=== PATIENT | male | born 1960 | race Caucasian/White ===

== ENCOUNTER 2022-09-09 13:54 | Emergency (ER) | payer OTHER ==
[2022-09-09 14:15] VITALS: RESP 20; TEMP 98.6
[2022-09-09] MEDS ORDERED: LIDOCAINE 1% PF 10 MG/ML (5 ML AMP) SQ ONE (14:35)
[2022-09-09] MEDS ORDERED: LIDOCAINE 1% INJ 10MG/ML (30 ML VIAL-PF) SQ ONE (14:36)
[2022-09-09] MEDS ORDERED: SULFAMETH-TMP DS STARTER PACK 2 TAB BTL PO STA (14:53)
[2022-09-09] MEDS ORDERED: CEPHALEXIN 500MG STARTER PACK 4 CAP BTL PO STA (14:53)
[2022-09-09] MEDS ORDERED: ACET/COD 300 MG/30 MG STARTER PACK 6 TAB BTL PO STA (14:53)
[2022-09-09] MEDS ORDERED: IBUPROFEN 600 MG STARTER PACK 4 TAB BTL PO STA (14:53)
--- NOTE | 2022-09-09 14:55 | ED ---
General Adult HPI - General Chief complaint: Skin/Abscess/Foreign Body Stated complaint: painful pimple rt shoulder Time Seen by Provider: 09/09/22 14:29 Source: patient, RN notes reviewed Mode of arrival: ambulatory Limitations: no limitations - History of Present Illness Initial comments: 62-year-old male presents emergency Department chief complaint of infection to his right shoulder region. Patient states she's had a lump she doses of possible for several months states now larger, more painful and red. Patient states he feels like it feel a pop. Patient has normal drug ALLERGIES. Denies any other trauma no other complaints. - Related Data Previous Rx's Medication Instructions Recorded Cephalexin [Keflex] 500 mg PO Q6HR #28 cap 09/09/22 Sulfamethox-Tmp 800-160Mg [Bactrim 1 each PO Q12HR #14 tab 09/09/22 Ds] Allergies Allergy/AdvReac Type Severity Reaction Status Date / Time No Known Allergies Allergy Verified 09/09/22 14:15 Review of Systems ROS Statement: Those systems with pertinent positive or pertinent negative responses have been documented in the HPI. ROS Other: All systems not noted in ROS Statement are negative. Past Medical History Past Medical History: No Reported History History of Any Multi-Drug Resistant Organisms: None Reported Past Surgical History: No Surgical Hx Reported Past Psychological History: No Psychological Hx Reported Smoking Status: Current every day smoker Past Alcohol Use History: None Reported Past Drug Use History: None Reported General Exam Limitations: no limitations General appearance: alert, in no apparent distress Head exam: Present: atraumatic, normocephalic, normal inspection Neck exam: Present: full ROM. Absent: normal inspection (2 cm fluctuant abscess area to the right trapezius), tenderness, meningismus, lymphadenopathy Respiratory exam: Present: normal lung sounds bilaterally. Absent: respiratory distress, wheezes, rales, rhonchi, stridor Cardiovascular Exam: Present: regular rate, normal rhythm, normal heart sounds. Absent: systolic murmur, diastolic murmur, rubs, gallop, clicks Course Vital Signs 09/09/22 14:12 Temperature 98.6 F Pulse Rate 83 Respiratory 20 Rate Blood Pressure 162/100 O2 Sat by Pulse 96 Oximetry Procedures - Incision & Drainage Consent Obtained: verbal consent Site: back Size (cm): 2 Anesthetic Used: lidocaine 1%, without epi Amount (mLs): 5 I&D Cleaning Method: Alcohol Wipe Sterile Field Used?: Yes Scalpel Used: #11 I&D Drainage Obtained: Pus Patient Tolerated Procedure: well, no complications Medical Decision Making - Medical Decision Making 62-year-old male presented for abscess right shoulder. Patient has a right shoulder infected sebaceous cysts this was I&D patient was placed on oral antibiotics and follow-up. Disposition Clinical Impression: Infected sebaceous cyst of skin Disposition: HOME SELF-CARE Condition: Stable Instructions (If sedation given, give patient instructions): Abscess (ED) Additional Instructions: Please return to the Emergency Department if symptoms worsen or any other concerns. Prescriptions: Sulfamethox-Tmp 800-160Mg [Bactrim Ds] 1 each PO Q12HR #14 tab Cephalexin [Keflex] 500 mg PO Q6HR #28 cap Is patient prescribed a controlled substance at d/c from ED?: No Referrals: None,Stated [Primary Care Provider] - 1-2 days Time of Disposition: 14:55
[2022-09-09 15:58] VITALS: BP 110/60; PULSE 68
== END 2022-09-09 15:58 | disposition home or self-care (01) ==
LOC: EC 13:54
DX: L72.3 Sebaceous cyst (principal); F17.200 Nicotine dependence, unspecified, uncomplicated
CPT/HCPCS: 10060; 99283; J2001

== ENCOUNTER 2023-06-11 07:47 | Emergency (ER) | payer OTHER ==
--- NOTE | 2023-06-11 08:16 | ED ---
General Adult HPI - General Chief complaint: Extremity Injury, Lower Stated complaint: [facility] - lt foot injury Time Seen by Provider: 06/11/23 07:50 Source: patient, RN notes reviewed, old records reviewed Mode of arrival: wheelchair Limitations: no limitations - History of Present Illness Initial comments: 63-year-old male presenting with left foot injury. Patient states that around midnight which was 8 hours prior to arrival he had dropped a wooden pallet on his left foot. He states he had taken some pain medication prior to this for unrelated pain complaint and states this did not bother him too much. He was able to walk throughout the night but noted this morning that his pain was increasing. He presents to the emergency department for evaluation. No other injury. - Related Data Previous Rx's Medication Instructions Recorded Cephalexin [Keflex] 500 mg PO Q6HR #28 cap 09/09/22 Sulfamethox-Tmp 800-160Mg [Bactrim 1 each PO Q12HR #14 tab 09/09/22 Ds] Allergies Allergy/AdvReac Type Severity Reaction Status Date / Time No Known Allergies Allergy Verified 09/09/22 14:15 Review of Systems ROS Statement: Those systems with pertinent positive or pertinent negative responses have been documented in the HPI. ROS Other: All systems not noted in ROS Statement are negative. Past Medical History Past Medical History: No Reported History History of Any Multi-Drug Resistant Organisms: None Reported Past Surgical History: No Surgical Hx Reported Past Psychological History: No Psychological Hx Reported Smoking Status: Current every day smoker Past Alcohol Use History: None Reported Past Drug Use History: None Reported General Exam Limitations: physical limitation General appearance: alert, in no apparent distress Head exam: Present: atraumatic, normocephalic Eye exam: Present: normal appearance, PERRL ENT exam: Present: normal exam Neck exam: Present: normal inspection Respiratory exam: Present: normal lung sounds bilaterally. Absent: respiratory distress, wheezes Cardiovascular Exam: Present: regular rate, normal rhythm GI/Abdominal exam: Present: soft. Absent: distended, tenderness Extremities exam: Present: other (Ecchymosis to the mid foot left side. Normal range of motion of the toes, distal pulses are intact. There is soft tissue swelling. No gross deformity.) Neurological exam: Present: alert, oriented X3 Psychiatric exam: Present: normal affect, normal mood Skin exam: Present: warm Course Vital Signs 06/11/23 08:03 Temperature 97.9 F Pulse Rate 82 Respiratory 18 Rate Blood Pressure 144/97 O2 Sat by Pulse 95 Oximetry Medical Decision Making - Medical Decision Making Was pt. sent in by a medical professional or institution ([facility], MOBILE HOME TECHNICIAN, urgent care, hospital, or long term...) When possible be specific @ -No Did you speak to anyone other than the patient for history (EMS, parent, family, police, friend...)? What history was obtained from this source @ -No Did you review nursing and triage notes (agree or disagree)? Why? @ -I reviewed and agree with nursing and triage notes Were old charts reviewed (outside hosp., previous admission, EMS record, old EKG, old radiological studies, urgent care reports/EKG's, long term records)? Report findings @ -No old charts were reviewed Differential Diagnosis (chest pain, altered mental status, abdominal pain women, abdominal pain men, vaginal bleeding, weakness, fever, dyspnea, syncope, headache, dizziness, GI bleed, back pain, seizure, CVA, palpatations, mental health, musculoskeletal)? @ -Fracture dislocation of the foot, contusion, hematoma EKG interpreted by me (3pts min.). @ -As above X-rays interpreted by me (1pt min.). @ -X-ray negative for fracture dislocation CT interpreted by me (1pt min.). @ -None done U/S interpreted by me (1pt. min.). @ -None done What testing was considered but not performed or refused? (CT, X-rays, U/S, labs)? Why? @ -None What meds were considered but not given or refused? Why? @ -None Did you discuss the management of the patient with other professionals (professionals i.e. [facility], MOBILE HOME TECHNICIAN, lab, RT, psych nurse, administrator social welfare, porcelain enamel laborer, teacher, senior officer, case monitor)? Give summary @ -No Was smoking cessation discussed for >3mins.? @ -No Was critical care preformed (if so, how long)? @ -No Were there social determinants of health that impacted care today? How? (Homelessness, low income, unemployed, alcoholism, drug addiction, transportati on, low edu. Level, literacy, decrease access to med. care, long-term, rehab)? @ -No Was there de-escalation of care discussed even if they declined (Discuss DNR or withdrawal of care, Hospice)? DNR status @ -No What co-morbidities impacted this encounter? (DM, HTN, Smoking, COPD, CAD, Cancer, CVA, ARF, Chemo, Hep., AIDS, mental health diagnosis, sleep apnea, morbid obesity)? @ -None Was patient admitted / discharged? Hospital course, mention meds given and route, prescriptions, significant lab abnormalities, going to OR and other pertinent info. @63-year-old male with left foot injury, after dropping a wooden pallet onto his foot. There is no fracture dislocation evident on x-ray. There is significant soft tissue swelling and hematoma. Puma wrap is placed patient will elevate and ice the extremity. He will follow-up with primary care if symptoms persist may require repeat x-rays in 1 week. Undiagnosed new problem with uncertain prognosis? @ -No Drug Therapy requiring intensive monitoring for toxicity (Heparin, Nitro, Insulin, Cardizem)? @ -No Were any procedures done? @ -No Diagnosis/symptom? @ -[Contusion hematoma of the left foot Acute, or Chronic, or Acute on Chronic? @ -Acute Uncomplicated (without systemic symptoms) or Complicated (systemic symptoms)? @ -default Side effects of treatment? @ -No Exacerbation, Progression, or Severe Exacerbation? @ -No Poses a threat to life or bodily function? How? (Chest pain, [place], [place], pneumonia, PE, COPD, DKA, ARF, appy, cholecystitis, CVA, Diverticulitis, Homicidal, Suicidal, threat to staff... and all critical care pts) @ -No Disposition Clinical Impression: Contusion of foot, Hematoma of left foot Disposition: HOME SELF-CARE Condition: Good Instructions (If sedation given, give patient instructions): Foot Contusion (ED) Is patient prescribed a controlled substance at d/c from ED?: No Referrals: None,Stated [Primary Care Provider] - 1-2 days Mauricio Marsh MD [REFERRING] - 1-2 days Time of Disposition: 09:05
--- NOTE | 2023-06-11 09:20 | XR ---
EXAMINATION TYPE: XR foot complete LT DATE OF EXAM: 06/11/2023 8:57 AM INDICATION: Patient age:Male; 63 years old; Reason for study: trauma; COMPARISON: None TECHNIQUE: The left foot was examined in the AP, oblique, and lateral projections. FINDINGS: No evidence of any acute osseous pathology. Soft tissue swelling over the dorsal foot. Joints are pr eserved. No radiopaque foreign body. IMPRESSION: Dorsal soft tissue swelling without evidence of fracture. No radiopaque foreign body.
[2023-06-11 09:45] VITALS: BP 162/92; PULSE 67; RESP 16; TEMP 97.8
== END 2023-06-11 09:45 | disposition home or self-care (01) ==
LOC: EC 07:47
DX: S90.32XA Contusion of left foot, initial encounter (principal); F17.200 Nicotine dependence, unspecified, uncomplicated; W20.8XXA Other cause of strike by thrown, projected or falling object, initial encounter
CPT/HCPCS: 99283

== ENCOUNTER → 2023-06-13 | Outpatient (CLI) | payer OTHER ==
--- NOTE | 2023-06-13 12:48 | XR ---
EXAMINATION TYPE: XR ankle complete LT DATE OF EXAM: 06/13/2023 COMPARISON: Left foot radiograph 06/11/2023 HISTORY: Pain, fall TECHNIQUE: 3 views of the left ankle are submitted for evaluation. FINDINGS: There is no evidence for fracture or dislocation. Ankle mortise is intact. Mild soft tissue swelling of the ankle. Tiny posterior calcaneal enthesophyte. IMPRESSION: 1. No evidence for acute fracture. 2. Mild soft tissue swelling of the ankle.
== END | disposition home or self-care (01) ==
LOC: RADXRMAIN 12:15
PROVIDERS: ATTEND Emergency Medicine
DX: S93.402A Sprain of unspecified ligament of left ankle, initial encounter (principal); M79.89 Other specified soft tissue disorders; W19.XXXA Unspecified fall, initial encounter; X58.XXXA Exposure to other specified factors, initial encounter

== ENCOUNTER → 2023-06-15 | Outpatient (CLI) | payer OTHER ==
--- NOTE | 2023-06-18 20:37 | MR ---
EXAMINATION TYPE: MR foot LT wo con DATE OF EXAM: 06/15/2023 COMPARISON: Radiographs 06/11/2023 HISTORY: 63-year-old male S90.32XA, S93.402A, Left foot pain, injury, pallet fell on top of foot. TECHNIQUE: Multiplanar, multisequence images of the left foot were obtained without IV contrast. FINDINGS: Prominent dorsal soft tissue swelling. There is underlying mass localized to the subcutaneous adipose layer along the level of the metatarsal shafts measuring up to 3.6 cm long by 3.6 cm wide by 1.5 cm thick. This demonstrates low T2-weighted signal intensity and mixed T1 signal intensity including are as of intermediate signal. Some accompanying mild edema along the plantar musculature of the foot probably reactive due to alter ed biomechanics. The extensor and flexor tendons show no gross abnormality. The underlying Lisfranc ligament is intact. No acute or healing fracture or abnormal bone marrow edema is seen. Achilles tendon is intact. Origin of the plantar fascia is intact. Preserved fatty signal within the sinus Tarsi. There is mild degenerative change at the first MTP joint. IMPRESSION: 1. Prominent dorsal soft tissue swelling with an accompanying 3.6 x 3.6 x 1.5 cm thick hematoma withi n the subcutaneous adipose layer at the patient's palpable site. 2. No underlying acute osseous abnormality seen. 3. Some edema along the plantar foot musculature likely reactive due to altered biomechanics.
== END | disposition home or self-care (01) ==
LOC: RADMRIMAIN 11:11
PROVIDERS: ATTEND Emergency Medicine
DX: S90.32XA Contusion of left foot, initial encounter (principal); S93.402A Sprain of unspecified ligament of left ankle, initial encounter; M79.89 Other specified soft tissue disorders; R60.0 Localized edema; X58.XXXA Exposure to other specified factors, initial encounter

== ENCOUNTER 2023-10-06 09:20 | Emergency (ER) | payer OTHER ==
[2023-10-06 09:54] VITALS: BP 175/88; TEMP 98.6
--- NOTE | 2023-10-06 11:32 | ED ---
General Adult HPI - General Source: patient, RN notes reviewed Mode of arrival: ambulatory Limitations: no limitations <Blanca Johnston - Last Filed: 10/06/23 11:28> <Edgard Goel - Last Filed: 10/06/23 16:21> - General Chief complaint: Skin/Abscess/Foreign Body Stated complaint: spider bite Time Seen by Provider: 10/06/23 11:28 - History of Present Illness Initial comments: patient is 63-year-old male presented ER with chief complaint of bug bite. Patient states that the past couple of days. Patient denies any fevers or chills. (Blanca Johnstno) 63-year-old male with chief complaint of bug bite or infection on right back. Patient states it's been there for a few days but just started to bother him last night. Patient thinks it needs to be incised and drained and antibiotics started. He denies fevers or chills. Denies any infections elsewhere.Patient has no other complaints at this time including shortness of breath, chest pain, abdominal pain, nausea or vomiting, headache, or visual changes. (Edgard Goel) - Related Data Previous Rx's Medication Instructions Recorded Cephalexin [Keflex] 500 mg PO Q6HR #28 cap 09/09/22 Sulfamethox-Tmp 800-160Mg [Bactrim 1 each PO Q12HR #14 tab 09/09/22 Ds] clindamycin HCL 300 mg PO TID #30 capsule 10/06/23 Allergies Allergy/AdvReac Type Severity Reaction Status Date / Time No Known Allergies Allergy Verified 10/06/23 09:54 Review of Systems ROS Other: All systems not noted in ROS Statement are negative. <Blanca Johnston - Last Filed: 10/06/23 11:28> ROS Other: All systems not noted in ROS Statement are negative. <Edgard Goel - Last Filed: 10/06/23 16:21> ROS Statement: Those systems with pertinent positive or pertinent negative responses have been documented in the HPI. Past Medical History Past Medical History: No Reported History History of Any Multi-Drug Resistant Organisms: None Reported Past Surgical History: No Surgical Hx Reported Past Psychological History: No Psychological Hx Reported Smoking Status: Current every day smoker Past Alcohol Use History: None Reported Past Drug Use History: None Reported <Blanca Johnston - Last Filed: 10/06/23 11:28> General Exam Limitations: no limitations <Blanca Jhonston - Last Filed: 10/06/23 11:28> General appearance: alert, in no apparent distress Head exam: Present: atraumatic Eye exam: Present: normal appearance, PERRL, EOMI. Absent: scleral icterus ENT exam: Present: normal exam Neck exam: Present: normal inspection Respiratory exam: Absent: respiratory distress Cardiovascular Exam: Present: regular rate, normal rhythm Back exam: Present: other (Patient has a 2 cm abscess on the right mid back with minimal surrounding erythema) <Edgard Goel - Last Filed: 10/06/23 16:21> - General Exam Comments Initial Comments: Visual Physical Exam Vital signs reviewed General: Well-appearing, nontoxic, no acute distress. Head: Normocephalic, atraumatic Eyes: PERRLA, EOMI ENT: Airway patent Chest: Nonlabored breathing Skin: No visual rash, normal skin tone Neuro: Alert and oriented 3 Musculoskeletal: No gross abnormalities (Blanca Johnston) Course Vital Signs 10/06/23 10/06/23 09:52 15:05 Temperature 98.6 F Pulse Rate 80 77 Respiratory 20 18 Rate Blood Pressure 175/88 O2 Sat by Pulse 99 99 Oximetry Procedures - Incision & Drainage Consent Obtained: verbal consent Indication: abscess Site: back Anesthetic Used: lidocaine 1% Amount (mLs): 1 I&D Cleaning Method: Alcohol Wipe Sterile Field Used?: Yes Scalpel Used: #11 I&D Drainage Obtained: Pus Patient Tolerated Procedure: well, no complications <Edgard Goel - Last Filed: 10/06/23 16:21> Medical Decision Making <Blanca Johnston - Last Filed: 10/06/23 11:28> <Edgard Goel - Last Filed: 10/06/23 16:21> - Medical Decision Making I performed the quick note portion of the exam. Electronically signed by Blanca Johnston PA-C (Blanca Johnston) Was pt. sent in by a medical professional or institution ([facility], MANAGER CATH LAB, urgent care, hospital, or alf...) When possible be specific @ -[No] Did you speak to anyone other than the patient for history (EMS, parent, family, police, friend...)? What history was obtained from this source @ -[No] Did you review nursing and triage notes (agree or disagree)? Why? @ -[I reviewed and agree with nursing and triage notes] Were old charts reviewed (outside hosp., previous admission, EMS record, old EKG, old radiological studies, urgent care reports/EKG's, alf records)? Report findings @ -[No old charts were reviewed] Differential Diagnosis (chest pain, altered mental status, abdominal pain women, abdominal pain men, vaginal bleeding, weakness, fever, dyspnea, syncope, head ache, dizziness, GI bleed, back pain, seizure, CVA, palpatations, mental health)? @ -abscess, MRSA, cellulitis, cyst EKG interpreted by me (3pts min.). @ -[As above] X-rays interpreted by me (1pt min.). @ -[None done] CT interpreted by me (1pt min.). @ -[None done] U/S interpreted by me (1pt. min.). @ -[None done] What testing was considered but not performed or refused? (CT, X-rays, U/S, labs)? Why? @ -[None] What meds were considered but not given or refused? Why? @ -[None] Did you discuss the management of the patient with other professionals (professionals i.e. , PA, MANAGER CATH LAB, lab, RT, psych nurse, health care social worker, confectionery maker, teacher, juvenile probation officer, ed case manager)? Give summary @ -[No] Was smoking cessation discussed for >3mins.? @ -[No] Was critical care preformed (if so, how long)? @ -[No] Were there social determinants of health that impacted care today? How? (Homelessness, low income, unemployed, alcoholism, drug addiction, transportation, low edu. Level, literacy, decrease access to med. care, halfway, rehab)? @ -[No] Was there de-escalation of care discussed even if they declined (Discuss DNR or withdrawal of care, Hospice)? DNR status @ -[No] What co-morbidities impacted this encounter? (DM, HTN, Smoking, COPD, CAD, Cancer, CVA, ARF, Chemo, Hep., AIDS, mental health diagnosis, sleep apnea, morbid obesity)? @ -[None] Was patient admitted / discharged? Hospital course, mention meds given and route, prescriptions, significant lab abnormalities, going to OR and other pertinent info. @ -Patient was seen for abscess. This was incised and drained and patient was started on antibiotics. Patient was discharged home with stable vitals. Undiagnosed new problem with uncertain prognosis? @ -[No] Drug Therapy requiring intensive monitoring for toxicity (Heparin, Nitro, Insulin, Cardizem)? @ -[No] Were any procedures done? @ -[No] Diagnosis/symptom? @ -abscess Acute, or Chronic, or Acute on Chronic? @ -acuteu Uncomplicated (without systemic symptoms) or Complicated (systemic symptoms)? @ uncomplicated] Side effects of treatment? @ -[No] Exacerbation, Progression, or Severe Exacerbation? @ -[No] Poses a threat to life or bodily function? How? (Chest pain, [place], [place], pneumonia, PE, COPD, DKA, ARF, appy, cholecystitis, CVA, Diverticulitis, Homicidal, Suicidal, threat to staff... and all critical care pts) @ -[No] (Edgard Goel) Disposition <Blanca Johnston - Last Filed: 10/06/23 11:28> Is patient prescribed a controlled substance at d/c from ED?: No Time of Disposition: 14:08 <Edgard Goel - Last Filed: 10/06/23 16:21> Clinical Impression: Abscess Disposition: HOME SELF-CARE Condition: Good Instructions (If sedation given, give patient instructions): Abscess (ED) Additional Instructions: Apply warm compresses. Follow-up with primary care. Return to the emergency room for any worsening symptoms. Prescriptions: clindamycin HCL 300 mg PO TID #30 capsule Referrals: Mauricio Marsh MD [REFERRING] - 1-2 days
[2023-10-06] MEDS ORDERED: LIDOCAINE 1% INJ 10MG/ML (20 ML MDV) SQ ONE (14:04)
[2023-10-06] MEDS ORDERED: BACITRACIN OINT 1 EACH PACKET TOPICAL ONE (14:18)
[2023-10-06 15:24] VITALS: PULSE 77; RESP 18
== END 2023-10-06 15:06 | disposition home or self-care (01) ==
LOC: EC 09:20
DX: T63.301A Toxic effect of unspecified spider venom, accidental (unintentional), initial encounter (principal); L02.212 Cutaneous abscess of back [any part, except buttock and flank]; F17.200 Nicotine dependence, unspecified, uncomplicated
CPT/HCPCS: 10060; 99283; J2001

== ENCOUNTER 2024-06-16 10:29 | Emergency (ER) | payer OTHER ==
[2024-06-16] MEDS ORDERED: KETOROLAC 15 MG/ML 1 ML VIAL ONE (12:35)
[2024-07-09 15:34] LABS: HCT 44.8 % (39.0-53.0); HGB 14.6 gm/dL (13.0-17.5); Lymphocytes % (A) 24 %; MCH 29.8 pg (25.0-35.0); MCHC 32.5 g/dL (31.0-37.0); MCV 91.7 fL (80.0-100.0); Monocytes % (A) 8 %; Neutrophils % (A) 60 %; Platelet Count 184 k/uL (150-450); RBC 4.89 m/uL (4.30-5.90); RDW 13.6 % (11.5-15.5); WBC 6.4 k/uL (3.8-10.6)
[2024-07-09 15:35] LABS: Basophils # (A) 0.1 k/uL (0-0.2); Basophils % (A) 1 %; Eosinophils # (A) 0.4 k/uL (0-0.7); Eosinophils % (A) 7 %; Lymphocytes # (A) 1.5 k/uL (1.0-4.8); Monocytes # (A) 0.5 k/uL (0-1.0); Neutrophils # (A) 3.8 k/uL (1.3-7.7)
[2024-07-09 15:37] LABS: African American GFR (CKD) >90 (>60 ml/min/1.73 sqM); Anion Gap 6 mmol/L; Blood Urea Nitrogen <2 mg/dL (9-20); Calcium 9.1 mg/dL (8.4-10.2); Carbon Dioxide 25 mmol/L (22-30); Chloride 108 mmol/L (98-107); Glucose 91 mg/dL (74-99); Magnesium 1.8 mg/dL (1.6-2.3); Non-African American GFR(CKD) >90 (>60 ml/min/1.73 sqM); Potassium 4.7 mmol/L (3.5-5.1); Sodium 139 mmol/L (137-145); Total Protein 7.1 g/dL (6.3-8.2)
[2024-07-09 15:38] LABS: ALT 16 U/L (4-49); AST 39 U/L (17-59); Alkaline Phosphatase 54 U/L (38-126); NT-Pro-B-Type Natriuretic Pept 71 pg/mL; Total Bilirubin 0.9 mg/dL (0.2-1.3)
== END 2024-06-16 11:30 | disposition home or self-care (01) ==
LOC: EC 10:29
CPT/HCPCS: 36415; 80053; 83605; 83735; 83880; 85025; 86140; 96374; 99283

== ENCOUNTER 2024-07-25 14:02 | Emergency (ER) | payer OTHER ==
--- NOTE | 2024-07-25 14:49 | ED ---
General Adult HPI - General Stated complaint: Nelson leg issue Time Seen by Provider: 07/25/24 14:21 Source: patient, RN notes reviewed Mode of arrival: ambulatory Limitations: no limitations - History of Present Illness Initial comments: 64-year-old male presents emergency department with chief complaint of bilateral leg swelling and redness. Patient was seen a few weeks ago was placed on antibiotics and it cleared up but states it has reoccurred. Patient denies any chest pain shortness of breath fevers or chills no nausea vomiting abdominal complaints. Patient states he has an appointment in 10 days with his PCP. - Related Data Previous Rx's Medication Instructions Recorded Cephalexin [Keflex] 500 mg PO Q6HR #28 cap 09/09/22 Sulfamethox-Tmp 800-160Mg [Bactrim 1 each PO Q12HR #14 tab 09/09/22 Ds] clindamycin HCL 300 mg PO TID #30 capsule 10/06/23 Cephalexin [Keflex] 500 mg PO Q6HR #40 cap 07/25/24 Sulfamethox-Tmp 800-160Mg [Bactrim 1 each PO Q12HR #20 tab 07/25/24 Ds] Allergies Allergy/AdvReac Type Severity Reaction Status Date / Time No Known Allergies Allergy Verified 10/06/23 09:54 Review of Systems ROS Statement: Those systems with pertinent positive or pertinent negative responses have been documented in the HPI. ROS Other: All systems not noted in ROS Statement are negative. Past Medical History Past Medical History: No Reported History History of Any Multi-Drug Resistant Organisms: None Reported Past Surgical History: No Surgical Hx Reported Past Psychological History: No Psychological Hx Reported Smoking Status: Current every day smoker Past Alcohol Use History: None Reported Past Drug Use History: None Reported General Exam General appearance: alert, in no apparent distress Head exam: Present: atraumatic, normocephalic, normal inspection Eye exam: Present: normal appearance, PERRL, EOMI. Absent: scleral icterus, conjunctival injection, periorbital swelling Respiratory exam: Present: normal lung sounds bilaterally. Absent: respiratory distress, wheezes, rales, rhonchi, stridor Cardiovascular Exam: Present: regular rate, normal rhythm, normal heart sounds. Absent: systolic murmur, diastolic murmur, rubs, gallop, clicks Extremities exam: Present: other (Bilateral lower extremities mild edema, erythema noted.) Course Vital Signs 07/25/24 15:33 Temperature 97.6 F Pulse Rate 76 Respiratory 16 Rate Blood Pressure 139/74 O2 Sat by Pulse 95 Oximetry Medical Decision Making - Medical Decision Making Was pt. sent in by a medical professional or institution ([facility], HEALTHCARE NETWORK CONSULTANT, urgent care, hospital, or long term...) When possible be specific @ -No Did you speak to anyone other than the patient for history (EMS, parent, family, police, friend...)? What history was obtained from this source @ -No Did you review nursing and triage notes (agree or disagree)? Why? @ -I reviewed and agree with nursing and triage notes Were old charts reviewed (outside hosp., previous admission, EMS record, old EKG, old radiological studies, urgent care reports/EKG's, long term records)? Report findings @ -No old charts were reviewed Differential Diagnosis (chest pain, altered mental status, abdominal pain women, abdominal pain men, vaginal bleeding, weakness, fever, dyspnea, syncope, headache, dizziness, GI bleed, back pain, seizure, CVA, palpatations, mental health, musculoskeletal)? @ -Leg edema, cellulitis EKG interpreted by me (3pts min.). @ -None X-rays interpreted by me (1pt min.). @ -None done CT interpreted by me (1pt min.). @ -None done U/S interpreted by me (1pt. min.). @ -None done What testing was considered but not performed or refused? (CT, X-rays, U/S, labs)? Why? @ -[CMP, CBC patient requesting antibiotics and follow-up with PCP. What meds were considered but not given or refused? Why? @ -None Did you discuss the management of the patient with other professionals (professionals i.e. [facility], HEALTHCARE NETWORK CONSULTANT, lab, RT, psych nurse, social worker palliative care, sole cutter, teacher, associate loan officer, major case detective)? Give summary @ -No Was smoking cessation discussed for >3mins.? @ -No Was critical care preformed (if so, how long)? @ -No Were there social determinants of health that impacted care today? How? (Homelessness, low income, unemployed, alcoholism, drug addiction, transportation, low edu. Level, literacy, decrease access to med. care, alf, rehab)? @ -No Was there de-escalation of care discussed even if they declined (Discuss DNR or withdrawal of care, Hospice)? DNR status @ -No What co-morbidities impacted this encounter? (DM, HTN, Smoking, COPD, CAD, Cancer, CVA, ARF, Chemo, Hep., AIDS, mental health diagnosis, sleep apnea, morbid obesity)? @ -None Was patient admitted / discharged? Hospital course, mention meds given and route, prescriptions, significant lab abnormalities, going to OR and other pertinent info. @ -Discharge patient has evidence of lower extremity cellulitis was started on oral antibiotics return parameters are discussed. Undiagnosed new problem with uncertain prognosis? @ -No Drug Therapy requiring intensive monitoring for toxicity (Heparin, Nitro, Insulin, Cardizem)? @ -No Were any procedures done? @ -No Diagnosis/symptom? @ -Lower extremity cellulitis Acute, or Chronic, or Acute on Chronic? @ -Acute Uncomplicated (without systemic symptoms) or Complicated (systemic symptoms)? @ -Uncomplicated Side effects of treatment? @ -No Exacerbation, Progression, or Severe Exacerbation? @ -No Poses a threat to life or bodily function? How? (Chest pain, [place], [place], pneumonia, PE, COPD, DKA, ARF, appy, cholecystitis, CVA, Diverticulitis, Homicidal, Suicidal, threat to staff... and all critical care pts) @ -No Disposition Clinical Impression: Cellulitis Disposition: HOME SELF-CARE Condition: Stable Instructions (If sedation given, give patient instructions): Cellulitis (ED) Additional Instructions: Please return to the Emergency Department if symptoms worsen or any other concerns. Prescriptions: Sulfamethox-Tmp 800-160Mg [Bactrim Ds] 1 each PO Q12HR #20 tab Cephalexin [Keflex] 500 mg PO Q6HR #40 cap Is patient prescribed a controlled substance at d/c from ED?: No Referrals: None,Stated [Primary Care Provider] - 1-2 days Time of Disposition: 14:49
[2024-07-25 15:36] VITALS: BP 139/74; PULSE 76; RESP 16; TEMP 97.6
== END 2024-07-25 15:44 | disposition home or self-care (01) ==
LOC: EC 14:02
CPT/HCPCS: 99282

== ENCOUNTER 2024-08-15 08:35 | Inpatient (IN) | payer OTHER ==
[2024-08-15] MEDS ORDERED: VANCOMYCIN IV PER PHARMACY 1 EACH MISC MISCELLANE PRN (09:06)
--- NOTE | 2024-08-15 09:12 | ED ---
General Adult HPI - General Chief complaint: Extremity Injury, Lower Stated complaint: Both Leg Pain Time Seen by Provider: 08/15/24 08:46 Source: patient, RN notes reviewed, old records reviewed Mode of arrival: wheelchair Limitations: no limitations - History of Present Illness Initial comments: 64-year-old male presenting with continued bilateral lower extremity swelling and erythema as well as multiple open wounds with drainage. Patient has had 2 rounds of oral antibiotics without significant improvement. He has no fever. No dyspnea. No systemic symptoms. - Related Data Previous Rx's Medication Instructions Recorded Cephalexin [Keflex] 500 mg PO Q6HR #28 cap 09/09/22 Sulfamethox-Tmp 800-160Mg [Bactrim 1 each PO Q12HR #14 tab 09/09/22 Ds] clindamycin HCL 300 mg PO TID #30 capsule 10/06/23 Cephalexin [Keflex] 500 mg PO Q6HR #40 cap 07/25/24 Sulfamethox-Tmp 800-160Mg [Bactrim 1 each PO Q12HR #20 tab 07/25/24 Ds] Allergies Allergy/AdvReac Type Severity Reaction Status Date / Time No Known Allergies Allergy Verified 10/06/23 09:54 Review of Systems ROS Statement: Those systems with pertinent positive or pertinent negative responses have been documented in the HPI. ROS Other: All systems not noted in ROS Statement are negative. Past Medical History Past Medical History: No Reported History Additional Past Medical History / Comment(s): cellulitis History of Any Multi-Drug Resistant Organisms: None Reported Past Surgical History: No Surgical Hx Reported Past Psychological History: No Psychological Hx Reported Smoking Status: Current every day smoker Past Alcohol Use History: None Reported Past Drug Use History: None Reported General Exam Limitations: no limitations General appearance: alert, in no apparent distress Head exam: Present: atraumatic, normocephalic Eye exam: Present: normal appearance, PERRL ENT exam: Present: normal exam Neck exam: Present: normal inspection. Absent: tenderness, meningismus Respiratory exam: Present: normal lung sounds bilaterally. Absent: respiratory distress, wheezes Cardiovascular Exam: Present: regular rate, normal rhythm GI/Abdominal exam: Present: soft. Absent: distended, tenderness, guarding Extremities exam: Present: pedal edema, other (Induration, erythema and superficial wounds of bilateral lower extremities) Neurological exam: Present: alert, oriented X3 Psychiatric exam: Present: normal affect, normal mood Skin exam: Present: warm, dry Course Vital Signs 08/15/24 08:41 Temperature 97.5 F L Pulse Rate 80 Respiratory 20 Rate Blood Pressure 181/113 O2 Sat by Pulse 97 Oximetry Medical Decision Making - Medical Decision Making Was pt. sent in by a medical professional or institution ([facility], [facility] BLOCK[facility], urgent care, hospital, or longterm...) When possible be specific @ -No Did you speak to anyone other than the patient for history (EMS, parent, family, police, friend...)? What history was obtained from this source @ -No Did you review nursing and triage notes (agree or disagree)? Why? @ -I reviewed and agree with nursing and triage notes Were old charts reviewed (outside hosp., previous admission, EMS record, old EKG, old radiological studies, urgent care reports/EKG's, longterm records)? Report findings @ -No old charts were reviewed Differential Diagnosis: Bilateral lower extremity cellulitis, chronic venous stasis, congestive heart failure, sepsis EKG interpreted by me (3pts min.). @ -As above X-rays interpreted by me (1pt min.). @ -None done CT interpreted by me (1pt min.). @ -None done U/S interpreted by me (1pt. min.). @ -None done What testing was considered but not performed or refused? (CT, X-rays, U/S, labs)? Why? @ -None What meds were considered but not given or refused? Why? @ -None Did you discuss the management of the patient with other professionals (professionals i.e. [facility], [facility] BLOCK[facility], lab, RT, psych nurse, high school social studies teacher, fixed route bus operator, teacher, classification officer, dependency case manager)? Give summary @ -[facility] Was smoking cessation discussed for >3mins.? @ -No Was critical care preformed (if so, how long)? @ -No Were there social determinants of health that impacted care today? How? (Homelessness, low income, unemployed, alcoholism, drug addiction, transportation, low edu. Level, literacy, decrease access to med. care, alf, rehab)? @ -No Was there de-escalation of care discussed even if they declined (Discuss DNR or withdrawal of care, Hospice)? DNR status @ -No What co-morbidities impacted this encounter? (DM, HTN, Smoking, COPD, CAD, Cancer, CVA, ARF, Chemo, Hep., AIDS, mental health diagnosis, sleep apnea, morbid obesity)? @ -None Was patient admitted / discharged? Hospital course, mention meds given and route, prescriptions, significant lab abnormalities, going to OR and other pertinent info. @ -[64-year-old male with recurrent bilateral lower extremity cellulitis, multiple draining wounds on the lower extremities, failed oral antibiotic treatment as an outpatient. No fever. Normal labs including CBC, CMP, lactic acid. Patient started on IV antibiotics and will be admitted for further treatment of bilateral lower extremity cellulitis. Case discussed with Dr. Sunshine Undiagnosed new problem with uncertain prognosis? @ -No Drug Therapy requiring intensive monitoring for toxicity (Heparin, Nitro, Insulin, Cardizem)? @ -No Were any procedures done? @ -No Diagnosis/symptom? @ -[Bilateral lower extremity cellulitis, failed outpatient treatment Acute, or Chronic, or Acute on Chronic? @ -Acute Uncomplicated (without systemic symptoms) or Complicated (systemic symptoms)? @ -Default Side effects of treatment? @ -No Exacerbation, Progression, or Severe Exacerbation? @ -No Poses a threat to life or bodily function? How? (Chest pain, [place], [place], pneumonia, PE, COPD, DKA, ARF, appy, cholecystitis, CVA, Diverticulitis, Homicidal, Suici jose, threat to staff... and all critical care pts) @ -[Yes, sepsis - Lab Data Result diagrams: 08/15/24 09:06 08/15/24 09:06 Lab Results 08/15/24 08/15/24 08/15/24 Range/Units 09:06 09:06 09:06 WBC 7.5 (3.8-10.6) k/uL RBC 5.12 (4.30-5.90) m/uL Hgb 15.1 (13.0-17.5) gm/dL Hct 47.1 (39.0-53.0) % MCV 91.8 (80.0-100.0) fL MCH 29.5 (25.0-35.0) pg MCHC 32.2 (31.0-37.0) g/dL RDW 14.1 (11.5-15.5) % Plt Count 163 (150-450) k/uL MPV 8.0 Neutrophils % 60 % Lymphocytes % 23 % Monocytes % 8 % Eosinophils % 7 % Basophils % 0 % Neutrophils # 4.5 (1.3-7.7) k/uL Lymphocytes # 1.7 (1.0-4.8) k/uL Monocytes # 0.6 (0-1.0) k/uL Eosinophils # 0.5 (0-0.7) k/uL Basophils # 0.0 (0-0.2) k/uL Sodium 139 (137-145) mmol/L Potassium 4.7 (3.5-5.1) mmol/L Chloride 105 (98-107) mmol/L Carbon Dioxide 29 (22-30) mmol/L Anion Gap 5 mmol/L BUN 18 (9-20) mg/dL Creatinine 0.64 L (0.66-1.25) mg/dL Est GFR (CKD-EPI)AfAm >90 (>60 ml/min/1.73 sqM) Est GFR (CKD-EPI)NonAf >90 (>60 ml/min/1.73 sqM) Glucose 92 (74-99) mg/dL Plasma Lactic Acid Federico 1.2 (0.7-2.0) mmol/L Calcium 9.7 (8.4-10.2) mg/dL Magnesium 1.7 (1.6-2.3) mg/dL Total Bilirubin 0.6 (0.2-1.3) mg/dL AST 34 (17-59) U/L ALT 21 (4-49) U/L Alkaline Phosphatase 69 (38-126) U/L Total Protein 7.2 (6.3-8.2) g/dL Albumin 4.1 (3.5-5.0) g/dL Disposition Clinical Impression: Cellulitis Disposition: ADMITTED IP TO THIS HOSP Condition: Stable Is patient prescribed a controlled substance at d/c from ED?: No Referrals: [facility] [Primary Care Provider] - 1-2 days Time of Disposition: 10:21
[2024-08-15 09:51] LABS: Basophils % (A) 0 %; Eosinophils # (A) 0.5 k/uL (0-0.7); Eosinophils % (A) 7 %; HCT 47.1 % (39.0-53.0); HGB 15.1 gm/dL (13.0-17.5); Lymphocytes # (A) 1.7 k/uL (1.0-4.8); Lymphocytes % (A) 23 %; MCH 29.5 pg (25.0-35.0); MCHC 32.2 g/dL (31.0-37.0); MCV 91.8 fL (80.0-100.0); Monocytes # (A) 0.6 k/uL (0-1.0); Monocytes % (A) 8 %; Neutrophils # (A) 4.5 k/uL (1.3-7.7); Neutrophils % (A) 60 %; Platelet Count 163 k/uL (150-450); RBC 5.12 m/uL (4.30-5.90); RDW 14.1 % (11.5-15.5); WBC 7.5 k/uL (3.8-10.6)
[2024-08-15 10:01] LABS: ALT 21 U/L (4-49); African American GFR (CKD) >90 (>60 ml/min/1.73 sqM); Albumin 4.1 g/dL (3.5-5.0); Anion Gap 5 mmol/L; Blood Urea Nitrogen 18 mg/dL (9-20); Calcium 9.7 mg/dL (8.4-10.2); Carbon Dioxide 29 mmol/L (22-30); Chloride 105 mmol/L (98-107); Glucose 92 mg/dL (74-99); Non-African American GFR(CKD) >90 (>60 ml/min/1.73 sqM); Sodium 139 mmol/L (137-145); Total Bilirubin 0.6 mg/dL (0.2-1.3); Total Protein 7.2 g/dL (6.3-8.2)
[2024-08-15 10:02] LABS: AST 34 U/L (17-59); Magnesium 1.7 mg/dL (1.6-2.3); Potassium 4.7 mmol/L (3.5-5.1)
[2024-08-15 10:03] LABS: Alkaline Phosphatase 69 U/L (38-126)
[2024-08-15] MEDS ORDERED: NALOXONE 0.4 MG/ML 1 ML VIAL IV PRN (10:19)
[2024-08-15] MEDS: VANCOMYCIN 1,750 MG in SODIUM CHLORIDE 0.9% 500 ML 500 ML IVPB STA (10:24)
[2024-08-15] MEDS: FUROSEMIDE 10 MG/ML 4 ML VIAL IV STA (10:26)
[2024-08-15] MEDS ORDERED: NICOTINE GUM (POLACRILEX) 2 MG GUM BUCCAL PRN (14:15)
--- NOTE | 2024-08-15 14:48 | P.HPIM ---
History of Present Illness H&P Date: 08/15/24 History of present illness; Maverick Pillai is a 64-year-old male who presents with bilateral lower extremity skin infection. The patient was most recently seen in the emergency room on 07/25/2024 for the same problem, and was treated for cellulitis and sent home with Keflex and Bactrim. Today patient states that he began taking antibiotics at home and was unable to visit primary care for follow-up and began spacing out antibiotic treatment. He reports bilateral lower extremity pain in both legs below the knee and above the ankle. He has no other complaints at this time. He denies chest pain, nausea, vomiting, abdominal pain, diarrhea, shortness of breath, headache, myalgia. Initial lab work done in the ER showed WBC 7.5 hemoglobin 15.1, platelets 163, sodium 139, potassium 4.7, chloride 105, bicarb 29, BUN 18, creatinine 0.64, glucose 92. Patient admitted to internal medicine service for treatment of chronic venous insufficiency. REVIEW OF SYSTEMS: All Systems reviewed, pertinent positives and negatives noted in HPI. All other symptoms are negative. The rest of the 14-point review of systems is negative. PHYSICAL EXAMINATION: Vitals reviewed GENERAL: Obese. The patient is alert and oriented x3, not in any acute distress. Well developed, well nourished. HEENT: Pupils are round and equally reacting to light. EOMI. No scleral icterus. No conjunctival pallor. Normocephalic, atraumatic. No pharyngeal erythema. No thyromegaly. CARDIOVASCULAR: S1 and S2 present. No murmurs, rubs, or gallops. PULMONARY: Chest is clear to auscultation, no wheezing or crackles. ABDOMEN: Soft, nontender, nondistended, normoactive bowel sounds. No palpable organomegaly. MUSCULOSKELETAL: No apparent joint swelling and deformities. EXTREMITIES: No apparent cyanosis, clubbing, or 2+ pedal edema. NEUROLOGICAL: Gross neurological examination did not reveal any focal deficits. SKIN: Left lower extremity with erythema extending from below the knee to ankle, with 5 inch ulceration with granulation tissue on anterior rueda. Right lower extremity with erythema extending below knee to ankle, evidence of 2 healing ulcers on anterior rueda. Wounds are nonpurulent and dry. Tender to palpation. Labs reviewed as above Imaging reviewednone todayas above Assessment and plan Maverick Pillai is a 64-year-old male who presents with bilateral lower extremity skin infection. # Chronic venous insufficiency, bilateral lower extremities # Venous insufficiency ulcers bilaterally # Cellulitis # Lower extremity edema S/p vancomycin and ceftriaxone 2 mg in ER S/p Lasix 40 mg IV push - Initiate 1 g cefazolin every 8 hours Consulted wound care - Blood cultures are pending - BNP, CXR, Echo, EKG #Hyperglycemia - A1c, Lipid Panel, TSH - LD SSI, accuchecks ACHS #Metabolic Alkalosis, likely compensatory from CO2 retention and smoking history - cessation as below - CXR as above - outpatient pulmonology referral for PFTs Chronic Medical Conditions #Tobacco addiction Given nicotine gum every 2 hours as needed - Counseled patient on smoking cessation F: P.o. E: Replete as needed N: Heart healthy diet E: None DVT ppx: Subq Lovenox Code status: Full code Anticipated discharge place: Pending clinical course Anticipated discharge time: Pending clinical course Monitor vital signs, CBC, BMP Continue with symptomatic treatment. Further recommendations as per clinical course of the patient Dictation was produced using [employer] dictation software. Please excuse any grammatical, word or spelling errors. I saw and evaluated the patient during the parry and critical portions of this encounter, and discussed the case in detail with the resident author of this note, I agree with the Assessment and Plan, and my changes, if any, are highlighted in blue. Past Medical History Past Medical History: No Reported History Additional Past Medical History / Comment(s): cellulitis History of Any Multi-Drug Resistant Organisms: None Reported Past Surgical History: No Surgical Hx Reported Past Psychological History: No Psychological Hx Reported Smoking Status: Current every day smoker Past Alcohol Use History: None Reported Past Drug Use History: None Reported Medications and Allergies Home Medications Medication Instructions Recorded Confirmed Type No Known Home Medications 08/15/24 08/15/24 History Allergies Allergy/AdvReac Type Severity Reaction Status Date / Time No Known Allergies Allergy Verified 08/15/24 11:59 Physical Exam Osteopathic Statement: *. No significant issues noted on an osteopathic structural exam other than those noted in the History and Physical/Consult. Vitals: Vital Signs Temp Pulse Resp BP Pulse Ox 08/15/24 14:12 80 16 120/79 96 08/15/24 08:41 97.5 F L 80 20 181/113 97 Intake and Output 08/14/24 08/15/24 08/15/24 22:59 06:59 14:59 Other: Weight 102.058 kg Results CBC & Chem 7: 08/15/24 14:37 08/15/24 14:37 Labs: Abnormal Lab Results - Last 24 Hours (Table) 08/15/24 Range/Units 09:06 Creatinine 0.64 L (0.66-1.25) mg/dL
[2024-08-15 14:59] LABS: Basophils % (A) 1 %; Eosinophils # (A) 0.6 k/uL (0-0.7); Eosinophils % (A) 7 %; HCT 45.4 % (39.0-53.0); HGB 14.8 gm/dL (13.0-17.5); Hypochromasia Slight; Lymphocytes % (A) 23 %; MCH 30.2 pg (25.0-35.0); MCHC 32.7 g/dL (31.0-37.0); MCV 92.4 fL (80.0-100.0); Mean Platelet Volume 8.4; Monocytes # (A) 0.6 k/uL (0-1.0); Monocytes % (A) 7 %; Neutrophils % (A) 60 %; Platelet Count 163 k/uL (150-450); RBC 4.92 m/uL (4.30-5.90); RDW 14.3 % (11.5-15.5); WBC 8.4 k/uL (3.8-10.6)
[2024-08-15 15:11] LABS: African American GFR (CKD) >90 (>60 ml/min/1.73 sqM); Anion Gap 4 mmol/L; Blood Urea Nitrogen 18 mg/dL (9-20); Calcium 9.4 mg/dL (8.4-10.2); Carbon Dioxide 32 mmol/L (22-30); Chloride 104 mmol/L (98-107); Glucose 125 mg/dL (74-99); Non-African American GFR(CKD) >90 (>60 ml/min/1.73 sqM); Sodium 140 mmol/L (137-145)
[2024-08-15] MEDS: ENOXAPARIN 40 MG/0.4 ML SYRINGE SQ SCH (16:45)
[2024-08-15] MEDS: ACETAMINOPHEN TAB 325 MG TAB PO PRN (16:46)
[2024-08-15] MEDS ORDERED: VANCOMYCIN 1,750 MG in SODIUM CHLORIDE 0.9% 500 ML 500 ML IVPB SCH (18:00)
[2024-08-15] MEDS: MORPHINE SULFATE 4 MG/ML SYRINGE IVP PRN (21:59)
[2024-08-16 10:03] LABS: BUN/Creat Ratio 23.86 Ratio (12.00-20.00); Blood Urea Nitrogen 16.7 mg/dL (9.0-27.0); Calcium 9.6 mg/dL (8.7-10.3); Carbon Dioxide 30.6 mmol/L (21.6-31.8); Chloride 102 mmol/L (96-109); Glucose 95 mg/dL (70-110); Potassium 4.3 mmol/L (3.5-5.5); Sodium 141 mmol/L (135-145)
[2024-08-16 10:06] LABS: Basophils # (A) 0.04 X 10*3/uL (0.00-0.10); Basophils % (A) 0.5 %; Eosinophils % (A) 5.7 %; HGB 15.2 g/dL (13.0-17.0); Lymphocytes # (A) 2.47 X 10*3/uL (0.90-5.00); MCH 29.3 pg (27.0-32.0); MCHC 31.7 g/dL (32.0-37.0); MCV 92.7 FL (80.0-97.0); Mean Platelet Volume 11.4 FL (9.5-12.2); Monocytes # (A) 0.97 X 10*3/uL (0.20-1.00); NRBC Per 100 WBC 0 X 10*3/uL (0.00-0.01); Neutrophils # (A) 4.82 X 10*3/uL (1.80-7.70); Neutrophils % (A) 54.5 %; Platelet Count 176 X 10*3/uL (140-440); RBC 5.18 X 10*6/uL (4.40-5.60); RDW 14.1 % (11.5-14.5); WBC 8.83 X 10*3/uL (4.50-10.00)
[2024-08-16] MEDS ORDERED: DEXTROSE 50% SYRINGE 50 ML IVP PRN ×2 (10:08)
[2024-08-16] MEDS: lisinopriL 10 MG TAB PO SCH (10:39)
[2024-08-16 11:16] LABS: Appearance,Urine Clear (Clear); Bilirubin,Urine Negative (Negative); Blood,Urine Negative (Negative); Color,Urine Light Yellow; Glucose,Urine (UA) Negative (Negative); Ketones,Urine Negative (Negative); Leukocyte Esterase,Urine Negative (Negative); Nitrite,Urine Negative (Negative); PH, Urine 5.5 (5.0-8.0); Protein,Urine Negative (Negative); Specific Gravity,Urine 1.018 (1.001-1.035); Urobilinogen,Urine <2.0 mg/dL (<2.0)
[2024-08-16 11:23] LABS: Glucose,Whole Blood 141 mg/dL (70-110)
[2024-08-16 11:23] LABS: Glucose,Whole Blood 547 mg/dL (70-110)
[2024-08-16] MEDS: INSULIN ASPART (NovoLOG) 100 UNIT/ML VIAL SQ SCH (11:50)
--- NOTE | 2024-08-16 12:15 | US ---
EXAMINATION TYPE: US venous doppler duplex LE BI DATE OF EXAM: 08/16/2024 11:43 AM COMPARISON: NONE CLINICAL INDICATION: Male, 64 years old with history of swelling; Swelling. No hx of DVT. SIDE PERFORMED: Bilateral TECHNIQUE: The lower extremity deep venous system is examined utilizing real time linear array sonog carlotta with graded compression, color doppler sonography, and spectral doppler. VESSELS IMAGED: Common Femoral Vein Deep Femoral Vein Greater Saphenous Vein * Femoral Vein Popliteal Vein Small Saphenous Vein * Proximal Calf Veins (* superficial vessels) Right Leg: No evidence of DVT. *Hypoechoic area with hyperechoic center seen right groin: 3.4 x 2.7 x 1.3 cm. Cortex= 6 mm. Left Leg: No evidence of DVT. *Hypoechoic area with hyperechoic center seen left groin: 3.0 x 2.3 x 1.5 Cortex= 6 mm. IMPRESSION: 1. Bilateral lower extremity ultrasound negative for deep venous thrombosis. 2. Prominent nodes present within the bilateral inguinal regions [facility] [place], Workstation: [email or web address], 08/16/2024 12:13 PM
[2024-08-16 16:47] LABS: Glucose,Whole Blood 101 mg/dL (70-110)
--- NOTE | 2024-08-16 17:27 | P.PN ---
Subjective Progress Note Date: 08/16/24 Maverick Pillai is a 64-year-old male who presents with bilateral lower extremity skin infection. The patient was most recently seen in the emergency room on 07/25/2024 for the same problem, and was treated for cellulitis and sent home with Keflex and Bactrim. Today patient states that he began taking antibiotics at home and was unable to visit primary care for follow-up and began spacing out antibiotic treatment. He reports bilateral lower extremity pain in both legs below the knee and above the ankle. He has no other complaints at this time. He denies chest pain, nausea, vomiting, abdominal pain, diarrhea, shortness of breath, headache, myalgia. Initial lab work done in the ER showed WBC 7.5 hemoglobin 15.1, platelets 163, sodium 139, potassium 4.7, chloride 105, bicarb 29, BUN 18, creatinine 0.64, glucose 92. Progress note 08/16/2024atient seen and examined at bedside. Patient expresses wish to not pursue extensive workup related to underlying chronic health c onditions. He has declined several investigations and interventions. He states he is otherwise feeling well and wishes to treat his lower leg symptoms. He has no other complaints at this time. Patient admitted to internal medicine service for treatment of chronic venous insufficiency. REVIEW OF SYSTEMS: All Systems reviewed, pertinent positives and negatives noted in HPI. All other symptoms are negative. The rest of the 14-point review of systems is negative. PHYSICAL EXAMINATION: Vitals reviewed GENERAL: Obese. The patient is alert and oriented x3, not in any acute distress. Well developed, well nourished. HEENT: Pupils are round and equally reacting to light. EOMI. No scleral icterus. No conjunctival pallor. Normocephalic, atraumatic. No pharyngeal erythema. No thyromegaly. CARDIOVASCULAR: S1 and S2 present. No murmurs, rubs, or gallops. PULMONARY: Chest is clear to auscultation, no wheezing or crackles. ABDOMEN: Soft, nontender, nondistended, normoactive bowel sounds. No palpable organomegaly. MUSCULOSKELETAL: No apparent joint swelling and deformities. EXTREMITIES: No apparent cyanosis, clubbing, or 2+ pedal edema. NEUROLOGICAL: Gross neurological examination did not reveal any focal deficits. SKIN: Left lower extremity with erythema extending from below the knee to ankle, with 5 inch ulceration with granulation tissue on anterior rueda. Right lower extremity with erythema extending below knee to ankle, evidence of 2 healing ulcers on anterior rueda. Wounds are nonpurulent and dry. Tender to palpation. Labs reviewed todayWBC 8.83, hemoglobin 15.2, platelets 176, sodium 141, potassium 4.3, chloride 102, bicarb 30.6, BUN 16.7, creatinine 0.7, glucose 547 Imaging reviewedultrasound bilateral lower extremities findings of no DVT, prominent nodes in bilateral inguinal regions. Assessment and plan Maverick Pillai is a 64-year-old male who presents with bilateral lower extremity skin infection. # Chronic venous insufficiency, bilateral lower extremities # Venous insufficiency ulcers bilaterally # Cellulitis # Lower extremity edema S/p vancomycin and ceftriaxone 2 mg in ER S/p Lasix 40 mg IV push - Continue 1 g cefazolin every 8 hours Consulted wound care - Blood cultures are pending -Pending BNP, CXR -Patient declined EKG, Echo #Cognitive change, possibly due to underlying depression versus dementia Declining information about health status Psychiatry consulted, recommendations appreciated #Hyperglycemia - Glucose 547 -Pending A1c, Lipid Panel, TSH -Continue LD SSI, accuchecks ACHS #Metabolic Alkalosis, likely compensatory from CO2 retention and smoking history - cessation as below - CXR as above - outpatient pulmonology referral for PFTs Chronic Medical Conditions #Tobacco addiction Given nicotine gum every 2 hours as needed - Counseled patient on smoking cessation F: P.o. E: Replete as needed N: Heart healthy diet E: None DVT ppx: Subq Lovenox Code status: Full code Anticipated discharge place: home Anticipated discharge time: Sunday/Sunday Monitor vital signs, CBC, BMP Continue with symptomatic treatment. Further recommendations as per clinical course of the patient Dictation was produced using [employer] dictation software. Please excuse any grammatical, word or spelling errors. I saw and evaluated the patient during the parry and critical portions of this encounter, and discussed the case in detail with the resident author of this note, I agree with the Assessment and Plan, and my changes, if any, are highlighted in blue. Objective - Vital Signs Vital signs: Vital Signs Temp 98.1 F 08/16/24 12:17 Pulse 81 08/16/24 12:17 Resp 17 08/16/24 12:17 BP 151/83 08/16/24 12:17 Pulse Ox 93 L 08/16/24 12:17 FiO2 Intake & Output 08/15/24 08/16/24 08/16/24 18:59 06:59 18:59 Intake Total 250 Balance 250 Weight 102.058 kg Intake: Oral 250 Other: Voiding Method Toilet Toilet # Voids 1 1 - Labs CBC & Chem 7: 08/16/24 05:23 08/16/24 05:23 Labs: Abnormal Lab Results - Last 24 Hours (Table) 08/16/24 08/16/24 08/16/24 Range/Units 05:23 05:23 11:21 MCHC 31.7 L (32.0-37.0) g/dL Eosinophils # 0.50 H (0.04-0.35) X 10*3/uL BUN/Creatinine Ratio 23.86 H (12.00-20.00) Ratio POC Glucose (mg/dL) 547 H* (70-110) mg/dL 08/16/24 Range/Units 11:22 MCHC (32.0-37.0) g/dL Eosinophils # (0.04-0.35) X 10*3/uL BUN/Creatinine Ratio (12.00-20.00) Ratio POC Glucose (mg/dL) 141 H (70-110) mg/dL
[2024-08-16 20:03] LABS: Glucose,Whole Blood 105 mg/dL (70-110)
[2024-08-16] MEDS ORDERED: CEPHALEXIN 500 MG CAP PO SCH (21:00)
[2024-08-17 06:29] LABS: Glucose,Whole Blood 85 mg/dL (70-110)
[2024-08-17 09:11] LABS: HCT 43.4 % (39.6-50.0); HGB 14.1 g/dL (13.0-17.0); MCH 29.6 pg (27.0-32.0); MCHC 32.5 g/dL (32.0-37.0); MCV 91.2 FL (80.0-97.0); Mean Platelet Volume 11.3 FL (9.5-12.2); NRBC Per 100 WBC 0 X 10*3/uL (0.00-0.01); Platelet Count 157 X 10*3/uL (140-440); RBC 4.76 X 10*6/uL (4.40-5.60); WBC 8.63 X 10*3/uL (4.50-10.00)
[2024-08-17] MEDS: IBUPROFEN 400 MG TAB PO PRN (10:12)
[2024-08-17 10:15] LABS: BUN/Creat Ratio 23.86 Ratio (12.00-20.00); Blood Urea Nitrogen 16.7 mg/dL (9.0-27.0); Carbon Dioxide 27.4 mmol/L (21.6-31.8); Chloride 103 mmol/L (96-109); Chol/HDL Ratio 3.46 Ratio; Glucose 97 mg/dL (70-110); LDL Cholesterol,Calculated 75.8 mg/dL (0.0-131.0); Potassium 4.2 mmol/L (3.5-5.5); Sodium 139 mmol/L (135-145)
--- NOTE | 2024-08-17 10:34 | P.PN ---
Subjective Progress Note Date: 08/17/24 Maverick Pillai is a 64-year-old male who presents with bilateral lower extremity skin infection. The patient was most recently seen in the emergency room on 07/25/2024 for the same problem, and was treated for cellulitis and sent home with Keflex and Bactrim. Today patient states that he began taking antibiotics at home and was unable to visit primary care for follow-up and began spacing out antibiotic treatment. He reports bilateral lower extremity pain in both legs below the knee and above the ankle. He has no other complaints at this time. He denies chest pain, nausea, vomiting, abdominal pain, diarrhea, shortness of breath, headache, myalgia. Initial lab work done in the ER showed WBC 7.5 hemoglobin 15.1, platelets 163, sodium 139, potassium 4.7, chloride 105, bicarb 29, BUN 18, creatinine 0.64, glucose 92. Progress note 08/17/2024ending psychiatry consult today for capacity evaluation. Pending wound care consultation. Patient admitted to internal medicine service for treatment of chronic venous insufficiency. REVIEW OF SYSTEMS: All Systems reviewed, pertinent positives and negatives noted in HPI. All other symptoms are negative. The rest of the 14-point review of systems is negative. PHYSICAL EXAMINATION: Vitals reviewed GENERAL: Obese. The patient is alert and oriented x3, not in any acute distress. Well developed, well nourished. HEENT: Pupils are round and equally reacting to light. EOMI. No scleral icterus. No conjunctival pallor. Normocephalic, atraumatic. No pharyngeal erythema. No thyromegaly. CARDIOVASCULAR: S1 and S2 present. No murmurs, rubs, or gallops. PULMONARY: Chest is clear to auscultation, no wheezing or crackles. ABDOMEN: Soft, nontender, nondistended, normoactive bowel sounds. No palpable organomegaly. MUSCULOSKELETAL: No apparent joint swelling and deformities. EXTREMITIES: No apparent cyanosis, clubbing, or 2+ pedal edema. NEUROLOGICAL: Gross neurological examination did not reveal any focal deficits. SKIN: Left lower extremity with erythema extending from below the knee to ankle, with 5 inch ulceration with granulation tissue on anterior rueda. Right lower extremity with erythema extending below knee to ankle, evidence of 2 healing ulcers on anterior rueda. Wounds are nonpurulent and dry. Tender to palpation. Labs reviewed todayWBC 8.83, hemoglobin 15.2, platelets 176, sodium 141, potassium 4.3, chloride 102, bicarb 30.6, BUN 16.7, creatinine 0.7, glucose 547 Imaging reviewedultrasound bilateral lower extremities findings of no DVT, prominent nodes in bilateral inguinal regions. Assessment and plan Maverick Pillai is a 64-year-old male who presents with bilateral lower extremity skin infection. # Chronic venous insufficiency, bilateral lower extremities # Venous insufficiency ulcers bilaterally # Cellulitis # Lower extremity edema S/p vancomycin and ceftriaxone 2 mg in ER S/p Lasix 40 mg IV push - Continue 1 g cefazolin every 8 hours Consulted wound care - Blood cultures are pending -Pending BNP -Patient declined chest x-ray, EKG, Echo # Low TSH -Pending free T3, free T4 is within normal range #Cognitive change, possibly due to underlying depression versus dementia Declining information about health status Psychiatry consulted, recommendations appreciated #Hyperglycemia # Prediabetes # Obesity class I, BMI 30.5 - Glucose 547 -A1c 6.1 -Will initiate oral diabetic medication as well as determine dosing for statin based on ASCVD -Continue LD SSI, accuchecks ACHS #Metabolic Alkalosis, likely compensatory from CO2 retention and smoking history - cessation as below - CXR as above - outpatient pulmonology referral for PFTs Chronic Medical Conditions #Tobacco addiction Given nicotine gum every 2 hours as needed - Counseled patient on smoking cessation F: P.o. E: Replete as needed N: Heart healthy diet E: None DVT ppx: Subq Lovenox Code status: Full code Anticipated discharge place: home Anticipated discharge time: Sunday/Sunday Monitor vital signs, CBC, BMP Continue with symptomatic treatment. Further recommendations as per clinical course of the patient Dictation was produced using [employer] dictation software. Please excuse any grammatical, word or spelling errors. I saw and evaluated the patient during the parry and critical portions of this encounter, and discussed the case in detail with the resident author of this note, I agree with the Assessment and Plan, and my changes, if any, are hig hlighted in blue. Objective - Vital Signs Vital signs: Vital Signs Temp 97.9 F 08/17/24 07:47 Pulse 86 08/17/24 07:47 Resp 17 08/17/24 07:47 BP 136/91 08/17/24 07:47 Pulse Ox 94 L 08/17/24 07:47 FiO2 Intake & Output 08/16/24 08/17/24 08/17/24 18:59 06:59 18:59 Intake Total 430 Balance 430 Intake: Oral 430 Other: Voiding Method Toilet Toilet # Voids 1 2 - Labs CBC & Chem 7: 08/17/24 02:56 08/17/24 02:56 Labs: Abnormal Lab Results - Last 24 Hours (Table) 08/16/24 08/16/24 08/16/24 Range/Units 05:23 05:23 11:21 BUN/Creatinine Ratio (12.00-20.00) Ratio POC Glucose (mg/dL) 547 H* (70-110) mg/dL Hemoglobin A1c 6.1 H (<=6.0) % HDL Cholesterol (40.00-60.00) mg/dL TSH <0.005 L (0.350-5.500) UIU/ML 08/16/24 08/17/24 Range/Units 11:22 02:56 BUN/Creatinine Ratio 23.86 H (12.00-20.00) Ratio POC Glucose (mg/dL) 141 H (70-110) mg/dL Hemoglobin A1c (<=6.0) % HDL Cholesterol 37.00 L (40.00-60.00) mg/dL TSH (0.350-5.500) UIU/ML Microbiology - Last 24 Hours (Table) 08/15/24 16:34 Blood Culture - Preliminary Blood 08/15/24 09:21 Blood Culture - Preliminary Blood
[2024-08-17 11:28] LABS: Glucose,Whole Blood 86 mg/dL (70-110)
[2024-08-17] MEDS: hydroCHLOROthiazide 12.5 MG CAP PO SCH (11:38)
--- NOTE | 2024-08-17 14:33 | P.CN ---
Psychiatric Consult - . Consult date: 08/17/24 Consult:: 08/17/24 13:21 IDENTIFYING DATA: This patient is a 64-year-old male, currently lives with a roommate, he is single he has 2 kids, he is retired collect Social Security REASON FOR REFERRAL: Psychiatry was consulted for capacity evaluation HISTORY OF PRESENT ILLNESS: The patient presented to the hospital initially on 08/15 due to bilateral lower extremity swelling open wounds and cellulitis. Patient also has been found to have venous insufficiency, currently on antibiotics. He was recently seen in the ER in July for similar issues. Patient has been taking some treatment and some medications. There is concern from hospitalist that patient does not understand his current medical illness and the severity. Reinstatement Clerk spoke with patient today at the bedside, he was calm and cooperative. He spoke about his cellulitis, states that this has been going on for about a year now. Claims that the pain has been getting worse. He claims that he is currently getting antibiotics however is not able to name which ones he is getting. He claims that he does know that he has an infection in his legs and acknowledges that it can spread and he can become septic even , also with knowledge that there is a possibility of amputation if it is not treated. He claims that his sleep has been on and off due to the pain, claims that he is eating fairly. Denying any depression at this time, claims that he is worried about his legs however. At this time patient denies any suicidal or homical ideations, intent or plan. Patient denies any auditory, visual hallucinations and denies any paranoia or delusions. Patients admits to using no recreational drugs or cigarettes PAST PSYCHIATRIC HISTORY: Patient claims that he has no known psychiatric condition. Patient denies being on any psychiatric medications. Patient denies any previous psychiatric hospitalizations. Patient denies any psychiatric outpatient follow-up. Patient denies any history of suicide attempts in the past. PAST MEDICAL HISTORY:Past Medical History: No Reported History Additional Past Medical History / Comment(s): cellulitis History of Any Multi-Drug Resistant Organisms: None Reported Past Surgical History: No Surgical Hx Reported Past Psychological History: No Psychological Hx Reported Smoking Status: Current every day smoker Past Alcohol Use History: None Reported Past Drug Use History: None Reported ALLERGIES: as per EMR. CHEMICAL DEPENDENCY HISTORY: as per HPI. FAMILY PSYCHIATRIC/SUBSTANCE USE HISTORY: Denies SOCIAL HISTORY: Patient was born and raised in [facility]. Claims that he completed high school and did 2 years of college. 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 Denies any legal history. Claims that he has 2 kids, he is retired collecting Social Security. He aurora ridley lives with a roommate, he is single. MENTAL STATUS EXAM: General Appearance: Patient appears to be in bed, stated age is alert, pleasant, and is to be cooperative. Patient appears to have fair hygiene and grooming wearing hospital gown with fair eye contact. Behavior: Patient is calmly lying in bed without any agitated behavior. Times to cooperate. Speech: Patient's speech is fluent and nonpressured. Mood/Affect: Patient reports their mood is "fine", affect is congruent Suicidality/Homicidality: Patient denies having any suicidal or homicidal ideation intent or plan. Perceptions: Patient denies any visual hallucinations and denies any auditory hallucinations Though content/process: There is no evidence of any delusional thought content and thought process is linear and goal-directed. Memory and concentration: AOX3, grossly intact for the purposes of this session. Can spell "WORLD" backwards Judgment and insight: Fair IMPRESSIONS: Adjustment disorder PLAN: -At this time patient DOES NOT meet criteria for inpatient psychiatric admission. -Patient DOES have decision making capacity at this time and is able to reason through and communicate/appreciate the risks, benefits and alternatives to treatment. -Would recommend the following medication changes/additions: Patient is not interested in any psychiatric medications at this time. -Communicated plan to patient's nurse -Psychiatry will sign off at this time -Please contact with any questions. 08/17/24 14:29
[2024-08-17 16:56] LABS: Glucose,Whole Blood 119 mg/dL (70-110)
[2024-08-17 20:20] LABS: Glucose,Whole Blood 103 mg/dL (70-110)
[2024-08-17] MEDS: hydrALAZINE HCL 25 MG TAB PO STA (23:28)
[2024-08-18 06:16] LABS: Glucose,Whole Blood 94 mg/dL (70-110)
[2024-08-18 08:46] LABS: HCT 44.1 % (39.6-50.0); HGB 14.3 g/dL (13.0-17.0); MCH 29.7 pg (27.0-32.0); MCHC 32.4 g/dL (32.0-37.0); MCV 91.5 FL (80.0-97.0); Mean Platelet Volume 11.8 FL (9.5-12.2); NRBC Per 100 WBC 0 X 10*3/uL (0.00-0.01); Platelet Count 149 X 10*3/uL (140-440); RBC 4.82 X 10*6/uL (4.40-5.60); RDW 13.7 % (11.5-14.5); WBC 7.27 X 10*3/uL (4.50-10.00)
[2024-08-18 08:47] LABS: Blood Urea Nitrogen 14.1 mg/dL (9.0-27.0); Calcium 9.2 mg/dL (8.7-10.3); Chloride 103 mmol/L (96-109); Glucose 93 mg/dL (70-110); Potassium 4.2 mmol/L (3.5-5.5); Sodium 140 mmol/L (135-145)
[2024-08-18 11:44] LABS: Glucose,Whole Blood 109 mg/dL (70-110)
--- NOTE | 2024-08-18 16:39 | P.PN ---
Subjective Progress Note Date: 08/18/24 Maverick Pillai is a 64-year-old male who presents with bilateral lower extremity skin infection. The patient was most recently seen in the emergency room on 07/25/2024 for the same problem, and was treated for cellulitis and sent home with Keflex and Bactrim. Today patient states that he began taking antibiotics at home and was unable to visit primary care for follow-up and began spacing out antibiotic treatment. He reports bilateral lower extremity pain in both legs below the knee and above the ankle. He has no other complaints at this time. He denies chest pain, nausea, vomiting, abdominal pain, diarrhea, shortness of breath, headache, myalgia. Initial lab work done in the ER showed WBC 7.5 hemoglobin 15.1, platelets 163, sodium 139, potassium 4.7, chloride 105, bicarb 29, BUN 18, creatinine 0.64, glucose 92. Progress note 08/18/2024atient seen and examined at bedside. Patient continues to have lower extremity pain. Awaiting wound care evaluation. Patient admitted to internal medicine service for treatment of chronic venous insufficiency. REVIEW OF SYSTEMS: All Systems reviewed, pertinent positives and negatives noted in HPI. All other symptoms are negative. The rest of the 14-point review of systems is negative. PHYSICAL EXAMINATION: Vitals reviewed GENERAL: Obese. The patient is alert and oriented x3, not in any acute distress. Well developed, well nourished. HEENT: Pupils are round and equally reacting to light. EOMI. No scleral icterus. No conjunctival pallor. Normocephalic, atraumatic. No pharyngeal erythema. No thyromegaly. CARDIOVASCULAR: S1 and S2 present. No murmurs, rubs, or gallops. PULMONARY: Chest is clear to auscultation, no wheezing or crackles. ABDOMEN: Soft, nontender, nondistended, normoactive bowel sounds. No palpable organomegaly. MUSCULOSKELETAL: No apparent joint swelling and deformities. EXTREMITIES: No apparent cyanosis, clubbing, or 2+ pedal edema. NEUROLOGICAL: Gross neurological examination did not reveal any focal deficits. SKIN: Left lower extremity with erythema extending from below the knee to ankle, with 5 inch ulceration with granulation tissue on anterior rueda. Right lower extremity with erythema extending below knee to ankle, evidence of 2 healing ulcers on anterior rueda. Wounds are nonpurulent and dry. Tender to palpation. Labs reviewed todayWBC 7.27, hemoglobin 14.3, platelets 149, sodium 140, potassium 4.2, chloride 103, bicarb 27, BUN 14, creatinine 0.6, glucose 109 Imaging reviewednone Assessment and plan Maverick Pillai is a 64-year-old male who presents with bilateral lower extremity skin infection. # Chronic venous insufficiency, bilateral lower extremities # Venous insufficiency ulcers bilaterally # Cellulitis # Lower extremity edema S/p vancomycin and ceftriaxone 2 mg in ER S/p Lasix 40 mg IV push - Continue 1 g cefazolin every 8 hours - Blood cultures preliminary with no growth - BNP 206 - Patient declined chest x-ray, EKG, Echo Consulted wound care # Low TSH -Free T35.30, free T4 1.51, TSH <0.005 -Plan TSI and NM thyroid imaging uptake -Consideration of adding treatment agent #Cognitive change, possibly due to underlying depression versus dementia Declining investigation and information about health status Psychiatry note reviewed #Hypertension Continue lisinopril 10 mg daily Increase dose of hydrochlorothiazide to 25 mg #Hyperglycemia # Prediabetes # Obesity class I, BMI 30.5 - Glucose 547 => 109 today -A1c 6.1 -Will initiate oral diabetic medication as well as determine dosing for statin based on ASCVD -Continue LD SSI, accuchecks ACHS #Metabolic Alkalosis, likely compensatory from CO2 retention and smoking history - cessation as below - CXR as above - outpatient pulmonology referral for PFTs Chronic Medical Conditions #Tobacco addiction Given nicotine gum every 2 hours as needed - Counseled patient on smoking cessation F: P.o. E: Replete as needed N: Heart healthy diet E: None DVT ppx: Subq Lovenox Code status: Full code Anticipated discharge place: home Anticipated discharge time: tomorrow Monitor vital signs, CBC, BMP Continue with symptomatic treatment. Further recommendations as per clinical course of the patient Dictation was produced using [employer] dictation software. Please excuse any grammatical, word or spelling errors. I saw and evaluated the patient during the parry and critical portions of this encounter, and discussed the case in detail with the resident author of this note, I agree with the Assessment and Plan, and my changes, if any, are highlighted in blue. Objective - Vital Signs Vital signs: Vital Signs Temp 97.4 F L 08/18/24 07:00 Pulse 81 08/18/24 08:00 Resp 17 08/18/24 08:00 BP 150/100 08/18/24 07:00 Pulse Ox 93 L 08/18/24 07:00 FiO2 Intake & Output 08/17/24 08/18/24 08/18/24 18:59 06:59 18:59 Intake Total 500 240 Output Total 400 400 Balance 100 -160 Intake: Oral 500 240 Output: Urine 400 400 Other: Voiding Method Toilet Toilet Toilet # Voids 2 1 1 - Labs CBC & Chem 7: 08/18/24 03:22 08/18/24 03:22 Labs: Abnormal Lab Results - Last 24 Hours (Table) 08/17/24 08/17/24 08/18/24 Range/Units 10:45 16:52 03:22 BUN/Creatinine Ratio 23.50 H (12.00-20.00) Ratio POC Glucose (mg/dL) 119 H (70-110) mg/dL Free T3 pg/mL 5.30 H (2.30-4.20) pg/mL Microbiology - Last 24 Hours (Table) 08/15/24 16:34 Blood Culture - Preliminary Blood 08/15/24 09:21 Blood Culture - Preliminary Blood
[2024-08-18 17:13] LABS: Glucose,Whole Blood 103 mg/dL (70-110)
[2024-08-18 20:18] LABS: Glucose,Whole Blood 169 mg/dL (70-110)
[2024-08-19 04:38] LABS: HCT 45.8 % (39.0-53.0); HGB 14.7 gm/dL (13.0-17.5); MCH 29.3 pg (25.0-35.0); MCV 91.4 fL (80.0-100.0); Mean Platelet Volume 8.7; Platelet Count 141 k/uL (150-450); RBC 5.01 m/uL (4.30-5.90); RDW 13.9 % (11.5-15.5); WBC 7.4 k/uL (3.8-10.6)
[2024-08-19 05:38] LABS: Glucose,Whole Blood 96 mg/dL (70-110)
[2024-08-19] MEDS: hydroCHLOROthiazide 25 MG TAB PO SCH (08:19)
--- NOTE | 2024-08-19 09:44 | P.CONS ---
History of Present Illness - Reason for Consult Consult date: 08/19/24 wound care - History of Present Illness This is a 64-year-old patient being seen on 4 S. for nonhealing ulceration to the left lower extremity. Ulceration measures 7 x 4 x 0.1 cm approximately. With limited to skin breakdown. Patient does have a weeping to the site. Granulation seen throughout the wound bed with slough and nonviable tissue present. Patient did not allow the wound to be unwrapped due to it being wrappe d to this morning. Pictures were reviewed for assessment of the ulceration. Patient's past medical history is only significant for cellulitis and a current every day smoker. Review Of Systems: Constitutional: No fever, no chills, no night sweats. No weight change. No weakness, fatigue or lethargy. No daytime sleepiness. Integumentary:reports wounds, no lesions. No rash or pruritus. No unusual bruising. No change in hair or nails. Physical exam: General Appearance: Alert, cooperative, no distress, appears stated age. Skin: See HPI all other Skin color, texture, tugor normal, no rashes or lesions. Neurologic: Alert oriented x3 Assessment: 1. Nonhealing ulceration limited to skin breakdown left lower extremity. 2. Nicotine dependence Plan: 1. Apply honey gel, dry gauze rolled gauze secure with paper tape. Wrap with Puma wrap for compression. Change Sunday. Patient may benefit from advanced wound care and wound care setting. Patient is agreeable to come to the wound care center. Thank you for the consultation any questions please contact the wound care center DNP note has been reviewed and discussed with Dr. Wright and the impression and plan of care has been directed as dictated. Past Medical History Past Medical History: No Reported History Additional Past Medical History / Comment(s): cellulitis History of Any Multi-Drug Resistant Organisms: None Reported Past Surgical History: No Surgical Hx Reported Past Psychological History: No Psychological Hx Reported Smoking Status: Current every day smoker Past Alcohol Use History: None Reported Past Drug Use History: None Reported Medications and Allergies Home Medications Medication Instructions Recorded Confirmed Type No Known Home Medications 08/15/24 08/15/24 History Allergies Allergy/AdvReac Type Severity Reaction Status Date / Time No Known Allergies Allergy Verified 08/15/24 11:59 Physical Exam Vitals: Vital Signs Temp Pulse Resp BP Pulse Ox 08/19/24 06:50 98.2 F 81 18 152/92 96 08/19/24 02:02 97.5 F L 79 18 143/92 94 L 08/18/24 20:44 98 F 85 16 121/74 92 L 08/18/24 15:15 98.2 F 81 17 138/88 94 L Intake and Output 08/18/24 08/19/24 08/19/24 22:59 06:59 14:59 Intake Total 240 Balance 240 Intake: Oral 240 Other: Voiding Method Toilet # Voids 3 3 Results CBC & Chem 7: 08/19/24 03:33 08/18/24 03:22 Labs: Abnormal Lab Results - Last 24 Hours (Table) 08/18/24 08/19/24 Range/Units 20:16 03:33 Plt Count 141 L (150-450) k/uL POC Glucose (mg/dL) 169 H (70-110) mg/dL Microbiology - Last 24 Hours (Table) 08/15/24 16:34 Blood Culture - Preliminary Blood 08/15/24 09:21 Blood Culture - Preliminary Blood Assessment and Plan (1) Non-pressure chronic ulcer of other part of left lower leg limited to breakdown of skin Current Visit: Yes Status: Acute Code(s): L97.821 - NON-PRS CHR ULCER OTH PRT L LOW LEG LIMITED TO BRKDWN SKIN SNOMED Code(s): 89734521224079102 (2) Nicotine dependence Current Visit: Yes Status: Acute Code(s): F17.200 - NICOTINE DEPENDENCE, UNSPECIFIED, UNCOMPLICATED SNOMED Code(s): 60339527
[2024-08-19 12:31] LABS: Glucose,Whole Blood 95 mg/dL (70-110)
--- NOTE | 2024-08-19 14:44 | P.DS ---
Providers Date of admission: 08/15/24 10:20 Expected date of discharge: 08/19/24 Attending physician: Milly Sunshine MD Consults: 08/16/24 11:57 Consult Physician Routine Consulting Provider: Edu Holloway Consult Reason/Comments: decision making capacity Do you want consulting provider notified?: Already Contacted Primary care physician: [facility] Hospital Course: Discharge diagnoses; # Chronic venous insufficiency, bilateral lower extremities # Venous insufficiency ulcers bilaterally # Cellulitis # Lower extremity edema # Low TSH #Cognitive change, possibly due to underlying depression versus dementia #Hypertension #Hyperglycemia # Prediabetes # Obesity class I, BMI 30.5 #Metabolic Alkalosis, likely compensatory from CO2 retention and smoking history #Tobacco addiction Hospital course; Maverick Pillai is a 64-year-old male who presents with bilateral lower extremity skin infection. The patient was most recently seen in the emergency room on 07/25/2024 for the same problem, and was treated for cellulitis and sent home with Keflex and Bactrim. Today patient states that he began taking antibiotics at home and was unable to visit primary care for follow-up and began spacing out antibiotic treatment. He reports bilateral lower extremity pain in both legs below the knee and above the ankle. He has no other complaints at this time. He denies chest pain, nausea, vomiting, abdominal pain, diarrhea, shortness of breath, headache, myalgia. Initial lab work done in the ER showed WBC 7.5 hemoglobin 15.1, platelets 163, sodium 139, potassium 4.7, chloride 105, bicarb 29, BUN 18, creatinine 0.64, glucose 92. During hospital stay patient was treated for chronic venous insufficiency with edema., bilateral lower extremity ulcers, and cellulitis. Patient was initially treated in ER with vancomycin and ceftriaxone and given IV Lasix. Following this he continued on 1 g cefazolin every 8 hours. Blood cultures taken were found to be negative. Wound care was consulted and saw patient. Patient declined further workup including chest x-ray, EKG, echocardiogram. BNP was found to be 206. During stay patient was also found to have low TSH<0.005, and T3 5.30, free T4 1.51. Patient declined further workup. During stay patient was also started on antihypertensives lisinopril 10 mg and hydrochlorothiazide 2 5 mg. He also initially had hyperglycemia glucose of 547, however remained predominantly normal throughout stay, HbA1c 6.1%. Patient was also seen by psychiatry during stay who stated he did not meet criteria for inpatient psychiatric hospitalization and does have decision-making capacity, and was not interested in psychiatric medications at this time. Patient is discharged to home in stable condition. He is discharged with new medication lisinoprilhydrochlorothiazide 20-25 mg daily for hypertension, and propranolol 10 mg twice daily for hypertension and elevated T3. Patient is to follow-up with family medicine clinic and wound care. PHYSICAL EXAMINATION: Vitals reviewed GENERAL: Obese. The patient is alert and oriented x3, not in any acute distress. Well developed, well nourished. HEENT: Pupils are round and equally reacting to light. EOMI. No scleral icterus. No conjunctival pallor. Normocephalic, atraumatic. No pharyngeal erythema. No thyromegaly. CARDIOVASCULAR: S1 and S2 present. No murmurs, rubs, or gallops. PULMONARY: Chest is clear to auscultation, no wheezing or crackles. ABDOMEN: Soft, nontender, nondistended, normoactive bowel sounds. No palpable organomegaly. MUSCULOSKELETAL: No apparent joint swelling and deformities. EXTREMITIES: No apparent cyanosis, clubbing, or 2+ pedal edema. NEUROLOGICAL: Gross neurological examination did not reveal any focal deficits. SKIN: Left lower extremity with erythema extending from below the knee to ankle, with 5 inch ulceration with granulation tissue on anterior rueda. Right lower extremity with erythema extending below knee to ankle, evidence of 2 healing ulcers on anterior rueda. Wounds are nonpurulent and dry. Tender to palpation. Dictation was produced using yuback dictation software. please excuse any grammatical, word or spelling errors. I saw and evaluated the patient during the parry and critical portions of this encounter, and discussed the case in detail with the resident author of this note, I agree with the Assessment and Plan, and my changes, if any, are highlighted in blue. Patient Condition at Discharge: Stable Plan - Discharge Summary New Discharge Prescriptions: New Lisinopril-Hctz 20-25 mg [Zestoretic 20-25] 1 tab PO DAILY #60 tab Propranolol [Inderal] 10 mg PO BID #60 tab Discharge Medication List Lisinopril-Hctz 20-25 mg [Zestoretic 20-25] 1 tab PO DAILY #60 tab 08/19/24 [Rx] Propranolol [Inderal] 10 mg PO BID #60 tab 08/19/24 [Rx] Follow up Appointment(s)/Referral(s): [facility], [NON-STAFF] - As Needed ([facility] will call you to schedule your in home nursing visits. ) [facility] [NON-STAFF] - 08/21/24 2:00 pm (Call wound center to make an appointment) Margo Mosher MD [RESIDENT] - 08/22/24 10:00 am () Patient Instructions/Handouts: Venous Insufficiency (DC) Activity/Diet/Wound Care/Special Instructions: Patient to followup with Family medicine clinic on 08/22 at 10AM, also follow up with wound care. Discharge Disposition: HOME SELF-CARE
[2024-08-19 16:00] VITALS: BP 154/55; PULSE 84; RESP 17; TEMP 97.3
--- NOTE | 2024-09-01 20:21 | CDI ---
Documentation Clarification Form Date: 09/01/2024 08:10:31 PM From: Mimi Obrien Phone: Admit Date: 08/15/2024 10:20:00 AM Patient Name: Maverick Pillai Visit Number: [id number] Discharge Date: 08/19/2024 04:36:00 PM ATTENTION: The Clinical Documentation Specialists (CDI) and [facility] Coding Staff appreciate your assistance in clarifying documentation. Please respond to the clarification below the line at the bottom and electronically sign. The CDI & [facility] Coding staff will review the response and follow-up if needed. Please note: Queries are made part of the Legal Health Record. If you have any questions, please contact the author of this message via ITS. Doctor/Provider: Milly Sunshine There is documentation of RLE evidence of 2 healing ulcers per H&P and Progress Notes. Additional specificity regarding the severity of the RLE wound is requested. Patient history/risk factors: 64yo F, BLE Chronicvenous insufficiency w ulcers, cellulitis, cognitive change, depression, HTN, hyperglycemia, prediabetes, obesity class I,BMI 30.5, metabolic Alkalosis, CO2 retention, smoker Clinical Indicators: Wound assessment: RLE witherythemaextending below knee to ankle, evidence of 2 healing ulcerson anterior rueda. Wounds are nonpurulent and dry. Tender to palpation. Treatment: S/pvancomycin and ceftriaxone 2 mg in ER. S/pLasix 40 mg IV push. Initiate 1 g cefazolin every 8hr. Consultedwoundcare. Blood cultures are pending Please clarify the severity of the RLE wound: [ ] Limited to breakdown of skin [ ] With fat layer exposed [ ] Other, Please specify [ x] Unable to determine (Template Last Revised: January 2021) MTDD
== END 2024-08-19 16:36 | disposition home or self-care (01) | DRG 197 ==
LOC: EC 08:35 → 4SSUR 10:20
PROVIDERS: ADMIT Internal Medicine; ATTEND Internal Medicine
DX: I87.2 Venous insufficiency (chronic) (peripheral) (principal); E87.4 Mixed disorder of acid-base balance; L97.821 Non-pressure chronic ulcer of other part of left lower leg limited to breakdown of skin; L03.116 Cellulitis of left lower limb; L03.115 Cellulitis of right lower limb; I10 Essential (primary) hypertension; Z68.30 Body mass index [BMI] 30.0-30.9, adult; F17.210 Nicotine dependence, cigarettes, uncomplicated; F43.20 Adjustment disorder, unspecified; R73.9 Hyperglycemia, unspecified; E66.811 Obesity, class 1; R73.03 Prediabetes; R41.89 Other symptoms and signs involving cognitive functions and awareness
CPT/HCPCS: 36415; 80048; 80053; 80061; 81003; 83036; 83605; 83735; 83880; 84439; 84443; 84481; 85025; 85027; 87040; 93970; 96365; 96366; 96367; 96375; 99285

== ENCOUNTER 2024-11-08 12:15 | Inpatient (IN) | payer OTHER ==
--- NOTE | 2024-11-08 13:26 | ED ---
General Adult HPI - General Source: patient Mode of arrival: wheelchair Limitations: no limitations <Rodney Marin - Last Filed: 11/08/24 13:24> <Nash Kennedy - Last Filed: 11/09/24 21:02> - General Chief complaint: Extremity Injury, Lower Stated complaint: L leg issue - History of Present Illness Initial comments: Quick note: 64-year-old male presents to the emergency department with worsening bilateral lower extremity wounds. Patient has history of chronic wounds to the bilateral lower extremities 2 days ago he was seen at wound clinic where he had dressings placed. He took the dressing off on his left leg because it was burning. Noticed it was red bleeding and draining. (Rodney Marin) 64-year-old male presenting with chief complaint of worsening wounds to the bilateral lower legs. Patient has history of chronic venous insufficiency ulcers to the bilateral lower extremities. He has been seeing wound care. He noticed that redness was spreading up his leg and he was having drainage and bleeding so he decided to come in. No fever. No nausea or vomiting. Patient is a smoker. He also states that he gets occasional chest pain. This has been ongoing for the last 5 days. Feels it in the center of his chest and sometimes in his left arm. No associated shortness of breath. No alleviating or aggravating factors. No cough congestion or sore throat. (Nash eKnnedy) - Related Data Previous Rx's Medication Instructions Recorded Lisinopril-Hctz 20-25 mg 1 tab PO DAILY #60 tab 08/19/24 [Zestoretic 20-25] Allergies Allergy/AdvReac Type Severity Reaction Status Date / Time No Known Allergies Allergy Verified 11/08/24 12:39 Review of Systems ROS Other: All systems not noted in ROS Statement are negative. <Rodney Marin - Last Filed: 11/08/24 13:24> ROS Other: All systems not noted in ROS Statement are negative. <Nash Kennedy - Last Filed: 11/09/24 21:02> ROS Statement: Those systems with pertinent positive or pertinent negative responses have been documented in the HPI. Past Medical History Past Medical History: No Reported History Additional Past Medical History / Comment(s): cellulitis History of Any Multi-Drug Resistant Organisms: None Reported Past Surgical History: No Surgical Hx Reported Past Psychological History: No Psychological Hx Reported Smoking Status: Current every day smoker Past Alcohol Use History: None Reported Past Drug Use History: None Reported <Rodney Marin - Last Filed: 11/08/24 13:24> General Exam Limitations: no limitations <Rodney Marin - Last Filed: 11/08/24 13:24> Limitations: no limitations General appearance: alert, in no apparent distress Head exam: Present: atraumatic, normocephalic, normal inspection Eye exam: Present: normal appearance, EOMI Neck exam: Present: normal inspection. Absent: meningismus Respiratory exam: Present: normal lung sounds bilaterally. Absent: respiratory distress, wheezes, rales, rhonchi, stridor Cardiovascular Exam: Present: regular rate, normal rhythm, normal heart sounds. Absent: systolic murmur, diastolic murmur, rubs, gallop, clicks Neurological exam: Present: alert, oriented X3 Psychiatric exam: Present: normal affect, normal mood Skin exam: Present: erythema (Lower legs) <Nash Kennedy - Last Filed: 11/09/24 21:02> - General Exam Comments Initial Comments: Visual Physical Exam Vital signs reviewed General: Well-appearing, nontoxic, no acute distress. Head: Normocephalic, atraumatic Eyes: PERRLA, EOMI ENT: Airway patent Chest: Nonlabored breathing Skin: Erythematous lower extremities, not warm to touch Neuro: Alert and oriented 3 Musculoskeletal: No gross abnormalities (Rodney Marin) Course Vital Signs 11/08/24 11/09/24 11/09/24 12:37 00:32 07:37 Temperature 98.1 F 97.7 F 98.1 F Pulse Rate 87 83 78 Respiratory 18 18 18 Rate Blood Pressure 133/89 132/92 140/81 O2 Sat by Pulse 95 95 97 Oximetry 11/09/24 11/09/24 09:43 18:13 Temperature 97.6 F Pulse Rate 81 59 L Respiratory 20 16 Rate Blood Pressure 121/75 155/103 O2 Sat by Pulse 97 Oximetry Medical Decision Making - Lab Data Result diagrams: 11/08/24 14:42 11/08/24 14:42 <Nash Kennedy - Last Filed: 12/29/24 21:02> - Medical Decision Making Was pt. sent in by a medical professional or institution (, TATY, BRINE SUPERVISOR, urgent care, hospital, or correction...) When possible be specific @ -No Did you speak to anyone other than the patient for history (EMS, parent, family, police, friend...)? What history was obtained from this source @ -No Did you review nursing and triage notes (agree or disagree)? Why? @ -I reviewed and agree with nursing and triage notes Were old charts reviewed (outside hosp., previous admission, EMS record, old EKG, old radiological studies, urgent care reports/EKG's, correction records)? Report findings @ -No old charts were reviewed Differential Diagnosis (chest pain, altered mental status, abdominal pain women, abdominal pain men, vaginal bleeding, weakness, fever, dyspnea, syncope, headache, dizziness, GI bleed, back pain, seizure, CVA, palpatations, mental health, musculoskeletal)? @ -Differential Musculoskeletal Muscular strain, contusion, ligament sprain, fracture, arthritis, septic arthritis, bursitis, cellulitis, muscle spasm, nerve compression, DVT, arterial occlusion, herpes zoster, electrolyte abnormality, tumor.... This is not meant to be in all inclusive list EKG interpreted by me (3pts min.). @ -EKG shows sinus rhythm ventricular rate 80. ID interval 151. QRS 142. QT 397. QTc 433. Right bundle branch block. X-rays interpreted by me (1pt min.). @ -Bilateral tibia-fibula x-rays show no evidence of acute fracture. Soft tissue swelling throughout the leg without evidence for osteomyelitis at this time. No subcutaneous gas definitively visualized. Correlate for infection/cellulitis Chest x-ray shows no acute cardiopulmonary disease and COPD changes with elevated left diaphragm Patient requested shoulder x-ray stating that he hurt it 3 months ago. X-ray shows no acute osseous pathology. Prior clavicular joint ligamentous injury with calcifications. Moderate degeneration changes of the glenohumeral and coracoclavicular joint CT interpreted by me (1pt min.). @ -None done U/S interpreted by me (1pt. min.). @ -None done What testing was considered but not performed or refused? (CT, X-rays, U/S, labs)? Why? @ -None What meds were considered but not given or refused? Why? @ -None Did you discuss the management of the patient with other professionals (professionals i.e. DrSean, PA, BRINE SUPERVISOR, lab, RT, psych nurse, health social work professor, graves registration specialist, teacher, intelligence support officer, case aide)? Give summary @ -I spoke with Dr. Dee who accepts admission Was smoking cessation discussed for >3mins.? @ -No Was critical care preformed (if so, how long)? @ -No Were there social determinants of health that impacted care today? How? (Homelessness, low income, unemployed, alcoholism, drug addiction, transportation, low edu. Level, literacy, decrease access to med. care, [facility], rehab)? @ -No Was there de-escalation of care discussed even if they declined (Discuss DNR or withdrawal of care, Hospice)? DNR status @ -No What co-morbidities impacted this encounter? (DM, HTN, Smoking, COPD, CAD, Cancer, CVA, ARF, Chemo, Hep., AIDS, mental health diagnosis, sleep apnea, morbid obesity)? @ -Smoker Was patient admitted / discharged? Hospital course, mention meds given and route, prescriptions, significant lab abnormalities, going to OR and other pertinent info. @ -64-year-old male presenting with chief complaint of worsening redness pain a nd swelling to his chronic lower leg wounds. Workup is initiated by triage. CRP 1.8. No leukocytosis or anemia. Patient is later placed in a room and examined by myself. He does have significant erythema to the lower extremities particularly worse on the left side. Patient will require admission for cellulitis. He is given a dose of Unasyn and vancomycin. Patient also complained of occasional chest pain starting 5 days ago. Troponin is negative and EKG shows no acute ischemic changes. Negative chest x-ray. Patient will be admitted he is agreeable with this plan. I discussed this case with my attending Dr. Murcia Undiagnosed new problem with uncertain prognosis? @ -No Drug Therapy requiring intensive monitoring for toxicity (Heparin, Nitro, Insulin, Cardizem)? @ -No Were any procedures done? @ -No Diagnosis/symptom? @ -Cellulitis Acute, or Chronic, or Acute on Chronic? @ -Acute Uncomplicated (without systemic symptoms) or Complicated (systemic symptoms)? @ -Complicated Side effects of treatment? @ -No Exacerbation, Progression, or Severe Exacerbation? @ -No Poses a threat to life or bodily function? How? (Chest pain, [place], [place], pneumonia, PE, COPD, DKA, ARF, appy, cholecystitis, CVA, Diverticulitis, Homicidal, Suicidal, threat to staff... and all critical care pts) @ -Yes Diagnosis/symptom? @Chest pain Acute, or Chronic, or Acute on Chronic? @Acute Uncomplicated (without systemic symptoms) or Complicated (systemic symptoms)? @Complicated Side effects of treatment? @None Exacerbation, Progression, or Severe Exacerbation] @none Poses a threat to life or bodily function? @Yes (Nash Kennedy) - Lab Data Lab Results 11/08/24 11/08/24 11/08/24 Range/Units 14:42 14:42 14:42 WBC 9.5 (3.8-10.6) k/uL RBC 4.89 (4.30-5.90) m/uL Hgb 14.6 (13.0-17.5) gm/dL Hct 44.3 (39.0-53.0) % MCV 90.7 (80.0-100.0) fL MCH 29.9 (25.0-35.0) pg MCHC 32.9 (31.0-37.0) g/dL RDW 12.9 (11.5-15.5) % Plt Count 142 L (150-450) k/uL MPV 8.5 Neutrophils % 59 % Lymphocytes % 24 % Monocytes % 7 % Eosinophils % 7 % Basophils % 1 % Neutrophils # 5.6 (1.3-7.7) k/uL Lymphocytes # 2.3 (1.0-4.8) k/uL Monocytes # 0.7 (0-1.0) k/uL Eosinophils # 0.7 (0-0.7) k/uL Basophils # 0.1 (0-0.2) k/uL Sodium 139 (137-145) mmol/L Potassium 4.5 (3.5-5.1) mmol/L Chloride 105 (98-107) mmol/L Carbon Dioxide 28 (22-30) mmol/L Anion Gap 6 mmol/L BUN 29 H (9-20) mg/dL Creatinine 0.67 (0.66-1.25) mg/dL Est GFR (CKD-EPI)AfAm >90 (>60 ml/min/1.73 sqM) Est GFR (CKD-EPI)NonAf >90 (>60 ml/min/1.73 sqM) Glucose 98 (74-99) mg/dL Plasma Lactic Acid Federico 0.9 (0.7-2.0) mmol/L Calcium 9.5 (8.4-10.2) mg/dL Total Bilirubin 0.6 (0.2-1.3) mg/dL AST 38 (17-59) U/L ALT 26 (4-49) U/L Alkaline Phosphatase 79 (38-126) U/L Troponin I (0.000-0.034) ng/mL C-Reactive Protein 1.8 H (<1.0) mg/dL Total Protein 6.9 (6.3-8.2) g/dL Albumin 4.2 (3.5-5.0) g/dL 11/08/24 Range/Units 22:04 WBC (3.8-10.6) k/uL RBC (4.30-5.90) m/uL Hgb (13.0-17.5) gm/dL Hct (39.0-53.0) % MCV (80.0-100.0) fL MCH (25.0-35.0) pg MCHC (31.0-37.0) g/dL RDW (11.5-15.5) % Plt Count (150-450) k/uL MPV Neutrophils % % Lymphocytes % % Monocytes % % Eosinophils % % Basophils % % Neutrophils # (1.3-7.7) k/uL Lymphocytes # (1.0-4.8) k/uL Monocytes # (0-1.0) k/uL Eosinophils # (0-0.7) k/uL Basophils # (0-0.2) k/uL Sodium (137-145) mmol/L Potassium (3.5-5.1) mmol/L Chloride (98-107) mmol/L Carbon Dioxide (22-30) mmol/L Anion Gap mmol/L BUN (9-20) mg/dL Creatinine (0.66-1.25) mg/dL Est GFR (CKD-EPI)AfAm (>60 ml/min/1.73 sqM) Est GFR (CKD-EPI)NonAf (>60 ml/min/1.73 sqM) Glucose (74-99) mg/dL Plasma Lactic Acid Federico (0.7-2.0) mmol/L Calcium (8.4-10.2) mg/dL Total Bilirubin (0.2-1.3) mg/dL AST (17-59) U/L ALT (4-49) U/L Alkaline Phosphatase (38-126) U/L Troponin I <0.012 (0.000-0.034) ng/mL C-Reactive Protein (<1.0) mg/dL Total Protein (6.3-8.2) g/dL Albumin (3.5-5.0) g/dL Disposition <Rodney Marin - Last Filed: 11/08/24 13:24> Time of Disposition: 23:02 <Nash Kennedy - Last Filed: 11/09/24 21:02> Clinical Impression: Cellulitis, Non-pressure chronic ulcer of other part of left lower leg limited to breakdown of skin Disposition: ADMITTED IP TO THIS HOSP Condition: Fair
[2024-11-08 14:54] LABS: Basophils # (A) 0.1 k/uL (0-0.2); Basophils % (A) 1 %; Eosinophils # (A) 0.7 k/uL (0-0.7); Eosinophils % (A) 7 %; HCT 44.3 % (39.0-53.0); HGB 14.6 gm/dL (13.0-17.5); Lymphocytes # (A) 2.3 k/uL (1.0-4.8); Lymphocytes % (A) 24 %; MCH 29.9 pg (25.0-35.0); MCHC 32.9 g/dL (31.0-37.0); MCV 90.7 fL (80.0-100.0); Mean Platelet Volume 8.5; Monocytes # (A) 0.7 k/uL (0-1.0); Monocytes % (A) 7 %; Neutrophils # (A) 5.6 k/uL (1.3-7.7); Neutrophils % (A) 59 %; Platelet Count 142 k/uL (150-450); RBC 4.89 m/uL (4.30-5.90); RDW 12.9 % (11.5-15.5); WBC 9.5 k/uL (3.8-10.6)
[2024-11-08 15:12] LABS: ALT 26 U/L (4-49); AST 38 U/L (17-59); African American GFR (CKD) >90 (>60 ml/min/1.73 sqM); Albumin 4.2 g/dL (3.5-5.0); Alkaline Phosphatase 79 U/L (38-126); Anion Gap 6 mmol/L; Blood Urea Nitrogen 29 mg/dL (9-20); C Reactive Protein 1.8 mg/dL (<1.0); Calcium 9.5 mg/dL (8.4-10.2); Carbon Dioxide 28 mmol/L (22-30); Chloride 105 mmol/L (98-107); Glucose 98 mg/dL (74-99); Non-African American GFR(CKD) >90 (>60 ml/min/1.73 sqM); Potassium 4.5 mmol/L (3.5-5.1); Sodium 139 mmol/L (137-145); Total Bilirubin 0.6 mg/dL (0.2-1.3); Total Protein 6.9 g/dL (6.3-8.2)
[2024-11-08] MEDS ORDERED: VANCOMYCIN IV PER PHARMACY 1 EACH MISC MISCELLANE PRN (19:12)
--- NOTE | 2024-11-08 20:52 | XR ---
EXAMINATION TYPE: XR chest 2V DATE OF EXAM: 11/08/2024 8:27 PM COMPARISON: None CLINICAL INDICATION: Male, 64 years old with history of chest pain; [facility] TECHNIQUE: XR chest 2V Frontal and lateral views of the chest. FINDINGS: Lungs/Pleura: Elevated left diaphragm noted. There is flattening of the diaphragm with increased luce ncy of the lungs. No evidence of pneumothorax, pleural effusion or focal consolidation. Pulmonary vascularity: Unremarkable. Heart/mediastinum: Cardiomediastinal silhouette is unremarkable. Musculoskeletal: No acute osseous pathology. IMPRESSION: 1. No acute cardiopulmonary disease process. 2. COPD changes. Elevated left diaphragm. [facility], , 11/08/2024 8:50 PM
--- NOTE | 2024-11-08 20:58 | XR ---
EXAMINATION TYPE: XR tibia fibula bilateral DATE OF EXAM: 11/08/2024 8:27 PM COMPARISON: None CLINICAL INDICATION: Male, 64 years old with history of wounds; pain TECHNIQUE: XR tibia fibula bilateral; examined in AP and lateral projections. FINDINGS: Soft tissue swelling throughout the leg no evidence for septations gas or osseous erosion. No evidence of any acute osseous pathology, joint dislocation. IMPRESSION: 1. No evidence of acute fracture. 2. Soft tissue swelling throughout the leg without evidence for osteomyelitis at this time. No subcu taneous gas definitively visualized. Correlate for infection/cellulitis. [facility], , 11/08/2024 8:56 PM
--- NOTE | 2024-11-08 21:03 | XR ---
EXAMINATION TYPE: XR shoulder complete LT DATE OF EXAM: 11/08/2024 8:27 PM COMPARISON: Chest radiograph. CLINICAL INDICATION: Male, 64 years old with history of Pain from injury a few months ago; [facility], pain TECHNIQUE: XR shoulder complete LT; examined in AP, internally rotated and scapular Y projections. FINDINGS: Prior acromioclavicular joint injury with calcification. No evidence of fracture. Moderate degenerati on with joint space narrowing and osteophyte formation of the glenohumeral and acromioclavicular join ts.No evidence of acute osseous pathology, joint dislocation, or soft tissue swelling. The remaining portions of the visualized chest are unremarkable. IMPRESSION: 1. No acute osseous pathology. 2. Prior, clavicular joint ligamentous injury with calcifications. 3. Moderate degeneration changes of the glenohumeral and coracoclavicular joint. [facility], , 11/08/2024 9:00 PM
[2024-11-08] MEDS: AMPICILLIN-SULBACTAM 3 GM in SODIUM CHLORIDE 0.9% 100 ML IVPB STA (22:05)
[2024-11-08] MEDS ORDERED: NALOXONE 0.4 MG/ML 1 ML VIAL IV PRN (22:58)
[2024-11-08] MEDS: VANCOMYCIN 1,750 MG in SODIUM CHLORIDE 0.9% 500 ML 500 ML IVPB STA (23:02)
[2024-11-09] MEDS: MORPHINE SULFATE 4 MG/ML SYRINGE IVP PRN (00:45)
--- NOTE | 2024-11-09 04:53 | P.HPIM ---
History of Present Illness H&P Date: 11/08/24 Patient is a 64-year-old male with a PMH of bilateral chronic venous insufficiency with chronic nonhealing ulcers and hypertension who presents to the emergency room with complaints of lower extremity swelling and pain. Patient reports that he was last seen in the wound care clinic roughly 2 to 3 w eeks ago and had dressings placed. He reports taking off the dressings earlier today as they have been causing him significant pain and noticing the nonhealed ulcers underneath. He became concerned and decided to come to the emergency room. He reports diffuse bilateral leg pain of 10 out of 10. Also reports occasional chest discomfort over the past several days, substernal, nonradiating, with some associated shortness of breath. Denies fever, cough, chills, nausea, vomiting, abdominal pain, diarrhea. Chest x-ray in the emergency room was unremarkable with EKG showing sinus rhythm with right bundle branch block at 80 beats per minute as reviewed by me. Laboratory evaluation was remarkable for troponin less than 0.012 with platelet count 142 (at baseline). ED documentation reviewed and case discussed with ED provider. Review of systems: Pertinent positives and negatives as discussed in HPI, a complete review of systems was performed and all other systems are negative. Physical examination: Vital signs reviewed General: non toxic, no distress, appears at stated age, normal weight Derm: Bilateral lower extremity venous stasis changes noted with multiple ulcers left leg greater than right, Head: atraumatic, normocephalic, symmetric Eyes: EOMI, no lid lag, anicteric sclera, pupils equal round reactive to light ENT: Nose and ears atraumatic Neck: No cervical lymphadenopathy, trachea midline, supple Mouth: no lip lesion, mucus membranes moist Cardiovascular: S1S2 reg, no murmur, positive dorsalis pedis pulse bilateral, 1+ rolando LE pitting edema Lungs: CTA bilateral, no rhonchi, no rales, no accessory muscle use Abdominal: soft, nontender to palpation, no guarding Ext: muscle strength 5 out of 5 in all 4 extremities grossly, no gross muscle atrophy, no contractures, Neuro: CN II-XI grossly intact, no gross focal neuro deficits Psych: Alert, oriented, appropriate affect Assessment: Chronic venous insufficiency with venous stasis ulcers, nonhealing Chest pain, rule out ACS Chronic conditions: Hypertension, tobacco abuse Imaging: Chest x-ray in the emergency room was unremarkable with EKG showing sinus rhythm with right bundle branch block at 80 beats per minute as reviewed by me. Data Review: Laboratory evaluation was remarkable for troponin less than 0.012 with platelet count 142 (at baseline). Plan: Continue with IV antibiotics with vancomycin Wound care infectious disease consult Follow-up blood cultures Trend troponin Cardiac monitoring Continue with aspirin and statin Cardiology consult DVT prophylaxis: Lovenox subcu The patient is admitted with an anticipated greater than 2 midnight stay for evaluation of venous stasis ulcers CODE STATUS: Full Code Discussed with: Patient Anticipated discharge place: Home Past Medical History Past Medical History: No Reported History Additional Past Medical History / Comment(s): cellulitis History of Any Multi-Drug Resistant Organisms: None Reported Past Surgical History: No Surgical Hx Reported Past Psychological History: No Psychological Hx Reported Smoking Status: Current every day smoker Past Alcohol Use History: None Reported Past Drug Use History: None Reported Medications and Allergies Home Medications Medication Instructions Recorded Confirmed Type Lisinopril-Hctz 20-25 mg 1 tab PO DAILY #60 tab 08/19/24 Rx [Zestoretic 20-25] Propranolol [Inderal] 10 mg PO BID #60 tab 08/19/24 Rx Allergies Allergy/AdvReac Type Severity Reaction Status Date / Time No Known Allergies Allergy Verified 11/08/24 12:39 Physical Exam Vitals: Vital Signs Temp Pulse Resp BP Pulse Ox 11/09/24 00:32 97.7 F 83 18 132/92 95 11/08/24 12:37 98.1 F 87 18 133/89 95 Intake and Output 11/08/24 11/08/24 11/09/24 14:59 22:59 06:59 Other: Weight 102.058 kg Results CBC & Chem 7: 11/08/24 14:42 11/08/24 14:42 Labs: Abnormal Lab Results - Last 24 Hours (Table) 11/08/24 11/08/24 Range/Units 14:42 14:42 Plt Count 142 L (150-450) k/uL BUN 29 H (9-20) mg/dL C-Reactive Protein 1.8 H (<1.0) mg/dL
[2024-11-09] MEDS: ASPIRIN 325 MG TAB PO STA (05:18)
[2024-11-09] MEDS: ATORVASTATIN 80 MG TAB PO STA (05:18)
[2024-11-09] MEDS: ASPIRIN 81 MG PO SCH (08:18)
[2024-11-09] MEDS: ENOXAPARIN 40 MG/0.4 ML SYRINGE SQ SCH (08:18)
[2024-11-09] MEDS: LISINOPRIL-HCTZ 20-25 MG 1 EACH TAB PO SCH (09:44)
[2024-11-09] MEDS: VANCOMYCIN 1,750 MG in SODIUM CHLORIDE 0.9% 500 ML 500 ML IVPB SCH (13:06)
--- NOTE | 2024-11-09 13:31 | P.PN ---
Subjective Progress Note Date: 11/09/24 Hospital Course: 64-year-old male with a PMH of bilateral chronic venous insufficiency with chr onic nonhealing ulcers and hypertension who presents to the emergency room with complaints of lower extremity swelling and pain. Complaining of chest pain. Chest x-ray in the emergency room was unremarkable with EKG showing sinus rhythm with right bundle branch block at 80 beats per minute. Laboratory evaluation was remarkable for troponin less than 0.012 with platelet count 142 (at baseline). Patient started on IV antibiotics. Cardiology also consulted. Subjective: Patient seen and examined at bedside. No acute events overnight. Denies any further chest pain. Pertinent positives and negatives as discussed above, a complete review of systems was performed and all other systems are negative. Vitals Signs Reviewed. General: Nontoxic, no distress, appears at stated age Derm: Warm, dry, bilateral lower extremity venous stasis changes, erythema and edema worse on the left lower extremity, multiple ulcerations with no drainage Head: Atraumatic, normocephalic, symmetric Eyes: EOMI, no lid lag, anicteric sclera Mouth: No lip lesion, mucus membranes moist Cardiovascular: S1S2 reg, no murmur Lungs: CTA bilateral, no rhonchi, no rales, no accessory muscle use Abdominal: Soft, nontender to palpation, no guarding, no appreciable organomegaly Ext: No gross muscle atrophy, no edema, no contractures Neuro: CN II-XI grossly intact, no focal neuro deficits Psych: Alert, oriented, appropriate affect Data Reviewed Today: Pertinent Labs: Troponin negative x 3 Imaging: No new imaging Assessment and Plan: Active: Chest pain, ACS ruled out -Continue telemetry monitoring -Aspirin 81 mg, atorvastatin 80 mg -Cardiology consulted, pending recommendations -Echocardiogram pending Left lower extremity cellulitis Chronic venous insufficiency bilateral, with nonhealing ulcers -Wound care consulted -Change antibiotics to IV cefazolin -If improving, will switch to oral Keflex -No signs of systemic infection -Pain control with oral Tylenol, IV morphine as needed, monitor for sedation Chronic: Hypertension DVT ppx: Lovenox Code status: Full code Anticipated discharge place: Pending clinical course Anticipated discharge time: Pending clinical course Objective - Vital Signs Vital signs: Vital Signs Temp 98.1 F 11/09/24 07:37 Pulse 81 11/09/24 09:43 Resp 20 11/09/24 09:43 BP 121/75 11/09/24 09:43 Pulse Ox 97 11/09/24 09:43 FiO2 Intake & Output 11/08/24 11/09/24 11/09/24 18:59 06:59 18:59 Weight 102.058 kg - Labs CBC & Chem 7: 11/08/24 14:42 11/08/24 14:42 Labs: Abnormal Lab Results - Last 24 Hours (Table) 11/08/24 11/08/24 Range/Units 14:42 14:42 Plt Count 142 L (150-450) k/uL BUN 29 H (9-20) mg/dL C-Reactive Protein 1.8 H (<1.0) mg/dL
[2024-11-09] MEDS: ATORVASTATIN 80 MG TAB PO SCH (20:44)
[2024-11-09] MEDS: KETOROLAC 15 MG/ML 1 ML VIAL IVP PRN (21:23)
[2024-11-10] MEDS: ACETAMINOPHEN TAB 325 MG TAB PO PRN (06:05)
[2024-11-10 07:42] LABS: African American GFR (CKD) >90 (>60 ml/min/1.73 sqM); Non-African American GFR(CKD) >90 (>60 ml/min/1.73 sqM)
--- NOTE | 2024-11-10 09:09 | CONS ---
CONSULTATION CHIEF COMPLAINT: Chest pain. HISTORY OF PRESENT ILLNESS: Maverick is a 64-year-old gentleman with history of chronic back pain, leukemia, status post chemoradiation, and hypertension, who presented to hospital with chest pain. He describes his chest discomfort as a precordial chest pain, mild intensity, without definite radiation to neck, arm, or back. His EKG shows sinus rhythm with right bundle- branch block. Three sets of troponins have been negative. At the time of my evaluation, the patient is in the emergency room and is free of symptoms. Given the unexplained chest pain, I advised the patient to undergo a stress test. He cannot walk on a treadmill because of neuropathy. He is going to have a dobutamine stress echo. PAST MEDICAL HISTORY: Significant for hypertension. MEDICATIONS: Include Zestoretic. ALLERGIES: There are no known drug allergies. FAMILY HISTORY: Negative for premature coronary artery disease. SOCIAL HISTORY: Negative for smoking, ETOH abuse, or drug abuse. REVIEW OF SYSTEMS: 14 out of 14 review of systems has been performed. Pertinents are as documented. PHYSICAL EXAMINATION: VITAL SIGNS: Afebrile. Heart rate is 78 beats per minute, blood pressure is 140/80, respiratory rate is 18, O2 saturation is 97% on room air. NECK: There is no jugular venous distention. Carotid upstroke is normal. There is no bruit. CHEST: Reveals good air entry bilaterally. HEART: Reveals first and second heart sounds. No gallop. No murmur. No rub. ABDOMEN: Soft, nontender. EXTREMITIES: Did not reveal any edema. Peripheral pulses are felt. LABORATORY DATA: Show that 3 sets of troponins are negative. Creatinine is 0.6, hemoglobin is 14.6. ASSESSMENT: Precordial chest pain. PLAN: The patient will undergo a dobutamine stress echo on Sunday. MMODL / IJN: [id number] /
--- NOTE | 2024-11-10 09:52 | P.CON ---
Consult Note - . Consult date: 11/10/24 Assessment/Plan:: wound care consultation: Reason for consultation: Bilateral lower extremity stasis ulcers. History of chief complaint:this patient has had what sounds like a long-standing history of bilateral lower extremity stasis ulcers. The patient does not appear to the very consistent with compliance and follow-up. He has been seen in wound care before. He is currently being seen for pain in his ulcers. Also failure to maintain at home under current conditions. Relevant physical examination: patient has a bounding posterior tibial pulse bilaterally. He has no foot ulcerations. He has raised thickened areas with dermal congestion in patches on both lower legs consistent with chronic venous stasis. On the right side he has a somewhat scabbed ulcer about 1.5 x 0.8 cm and what appears to be about 0.1 cm in depth. On the left he has multiple ulcerations. The largest appears to be about 5 x 1.5 cm and about 0.2 cm in depth with a couple of other ulcerations around it. Impression: Bilateral chronic venous stasis ulcers. Recommendation: I would recommend utilizing on a gel which would be covered with gauze and then a gauze wrap. Would utilize 4 inch double roll Puma wrap from the base of the toes to just below the knee in [id number] fashion for compression. I would recommend that the patient be followed in Wound Center where further adjustment of topical and compression therapies can be maintained. Please let us know if further recommendations are needed.
--- NOTE | 2024-11-10 11:16 | P.PN ---
Subjective Progress Note Date: 11/10/24 Hospital Course: 64-year-old male with a PMH of bilateral chronic venous insufficiency with chr onic nonhealing ulcers and hypertension who presents to the emergency room with complaints of lower extremity swelling and pain. Complaining of chest pain. Chest x-ray in the emergency room was unremarkable with EKG showing sinus rhythm with right bundle branch block at 80 beats per minute. Laboratory evaluation was remarkable for troponin less than 0.012 with platelet count 142 (at baseline). Patient started on IV antibiotics. Cardiology also consulted. Pending stress echo. Subjective: Patient seen and examined at bedside. No acute events overnight. Denies any further chest pain. Continues to have left lower extremity pain Pertinent positives and negatives as discussed above, a complete review of systems was performed and all other systems are negative. Vitals Signs Reviewed. General: Nontoxic, no distress, appears at stated age Derm: Warm, dry, bilateral lower extremity venous stasis changes, erythema and edema worse on the left lower extremity, multiple ulcerations with no drainage Head: Atraumatic, normocephalic, symmetric Eyes: EOMI, no lid lag, anicteric sclera Mouth: No lip lesion, mucus membranes moist Cardiovascular: S1S2 reg, no murmur Lungs: CTA bilateral, no rhonchi, no rales, no accessory muscle use Abdominal: Soft, nontender to palpation, no guarding, no appreciable organomegaly Ext: No gross muscle atrophy, no edema, no contractures Neuro: CN II-XI grossly intact, no focal neuro deficits Psych: Alert, oriented, appropriate affect Data Reviewed Today: Pertinent Labs: Creatinine 0.66 Imaging: No new imaging Assessment and Plan: Active: Chest pain, ACS ruled out -Continue telemetry monitoring -Aspirin 81 mg, atorvastatin 80 mg -Cardiology following, pending stress echo today Left lower extremity cellulitis Chronic venous insufficiency bilateral, with nonhealing ulcers -Wound care following -Continue IV cefazolin -If improving, will switch to oral Keflex -No signs of systemic infection -Pain control with oral Tylenol, IV morphine as needed, monitor for sedation -Reviewed recent venous Dopplers, negative for DVTs -Will get arterial Dopplers as well Positive blood culture, likely contaminant -Growing Staph epidermidis -Repeat blood culture Chronic: Hypertension DVT ppx: Lovenox Code status: Full code Anticipated discharge place: Pending clinical course Anticipated discharge time: Pending clinical course Objective - Vital Signs Vital signs: Vital Signs Temp 97.4 F L 11/10/24 08:56 Pulse 98 11/10/24 08:56 Resp 17 11/10/24 08:56 BP 124/86 11/10/24 08:56 Pulse Ox 93 L 11/10/24 08:56 FiO2 - Labs CBC & Chem 7: 11/08/24 14:42 11/10/24 06:34 Labs: Microbiology - Last 24 Hours (Table) 11/08/24 14:42 Blood Culture Gram Stain - Preliminary Blood Blood Culture - Preliminary Molecular ID
--- NOTE | 2024-11-10 11:29 | CA ---
Transthoracic Echo Report Name: Maverick Pillai Age: 64 Gender: M : 1960 Exam Date: 11/10/2024 09:16 Exam Location: [facility] Ht (in): 72 Wt (lb): 225 Ordering Physician: Zeenat Adams Attending/Referring Phys: [id number], [employer] Salesperson Dilcia Martinez, FRANCISCO JAVIER Procedure CPT: Indications: LV function, CP Cardiac Hx: Technical Quality: Good Contrast 1: Total Dose (mL): Contrast 2: Total Dose (mL): MEASUREMENTS (Male / Female) Normal Values 2D ECHO LV Diastolic Diameter PLAX 4.7 cm 4.2 - 5.9 / 3.9 - 5.3 cm LV Systolic Diameter PLAX 3.3 cm IVS Diastolic Thickness 1.2 cm 0.6 - 1.0 / 0.6 - 0.9 cm LVPW Diastolic Thickness 1.2 cm 0.6 - 1.0 / 0.6 - 0.9 cm LV Relative Wall Thickness 0.5 RV Internal Dim ED PLAX 3.7 cm LA Systolic Diameter LX 3.5 cm 3.0 - 4.0 / 2.7 - 3.8 cm LA Volume 62.2 cm??? 18 - 58 / 22 - 52 cm??? LA Volume Index 27.0 cm???/m??? 16 - 28 cm???/m??? M-MODE Aortic Root Diameter MM 4.0 cm AV Cusp Separation MM 2.5 cm DOPPLER AV Peak Velocity 179.9 cm/s AV Peak Gradient 12.9 mmHg AV Mean Velocity 126.5 cm/s AV Mean Gradient 7.0 mmHg AV Velocity Time Integral 37.9 cm MV Area PHT 3.3 cm??? Mitral E Point Velocity 78.7 cm/s Mitral A Point Velocity 88.8 cm/s Mitral E to A Ratio 0.9 MV Deceleration Time 230.9 ms TR Peak Velocity 280.3 cm/s TR Peak Gradient 31.4 mmHg Right Ventricular Systolic Press 36.3 mmHg FINDINGS Left Ventricle Left ventricular ejection fraction is estimated at 55-60 %. Left ventricular cavity size normal. Mildly increased septal wall thickness. Right Ventricle Mild right ventricular dilatation. Mild pulmonary hypertension. Right Atrium Normal right atrial size. No spontaneous contrast in the right atrium. Left Atrium Mildly increased left atrial volume. No left atrial thrombus or mass present. Mitral Valve Structurally normal mitral valve. No mitral stenosis, regurgitation or prolapse. Aortic Valve Trileaflet aortic valve. Mild aortic regurgitation. Tricuspid Valve Structurally normal tricuspid valve. Mild tricuspid regurgitation. Pulmonic Valve Structurally normal pulmonic valve. No pulmonic regurgitation. Pericardium No pericardial effusion. Aorta Moderate aortic dilatation at the level of the sinuses of valsalva 40 mm CONCLUSIONS Normal biventricular systolic function Mildly dilated right ventricle. Mild pulmonary hypertension Poorly visualized aortic valve. Cannot rule out bicuspid aortic valve Dilated aorta at 4.0 cm Mild aortic insufficiency Previewed by: Dr. Sulaiman Tong MD (Electronically Signed) Final Date: 10 November 2024 11:28
--- NOTE | 2024-11-10 12:47 | US ---
EXAMINATION TYPE: US arterial LE multi level DATE OF EXAM: 11/10/2024 12:23 PM COMPARISONS: None. CLINICAL INDICATION: Male, 64 years old with history of edema, poor wound healing; Pt has non-healing wounds to bilateral lower legs, more on left lower leg TECHNIQUE: Systolic pressures were taken of the upper and lower extremity arteries with ankle-brachia l indices and toe brachial indices calculated bilaterally. FINDINGS: Doppler Waveforms: Right: Left: Brachial Artery systolic pressure: Right: 132 Left: 129 Posterior Tibial artery systolic pressure: Right: 155 Left: Unable to occlude- pt could not tolerate cuff pressure Dorsalis Pedis artery systolic pressure: Right: 163 Left: 140 Toe artery systolic pressure: Right: 54 Left: 74 Ankle-Brachial Indices: Right: 1.2 Left: 1.1 Toe Brachial Indices: Right: 0.4 Left: 0.6 (Normal > 0.6; Mild 0.35 - 0.59, Moderate 0.12 - 0.34, Severe <0.12) IMPRESSION: Right: There is mild stenosis in the right toe digital artery normal blood flow is more superior in t he right. Left: Unable to assess [facility], , 11/10/2024 12:45 PM
--- NOTE | 2024-11-10 12:53 | P.PN ---
Subjective HISTORY OF PRESENT ILLNESS: Patient examined this morning the bedside. Patient currently denies chest pain or pressure. He denies shortness of breath. Vital signs are stable. Echocardiogram completed revealing ejection fraction 55 to 60%, mild aortic regurgitation, mild tricuspid regurgitation, mild pulm hypertension, cannot rule out bicuspid aortic valve. PHYSICAL EXAM: VITAL SIGNS: Reviewed. GENERAL: Well-developed in no acute distress. NECK: Supple. No JVD or thyromegaly LUNGS: Respirations even and unlabored. Lungs essentially clear to auscultation bilaterally. HEART: Regular rate and rhythm. S1 and S2 heard. EXTREMITIES: Normal range of motion. No clubbing or cyanosis. Peripheral pulses intact. Bilateral lower extremity edema with multiple superficial ulcerations. ASSESSMENT: Chest pain, troponin negative x 3, ACS ruled out Bilateral lower extremity cellulitis Bilateral lower extremity stasis ulcers Hypertension PLAN: Continue current cardiac medications Will plan for outpatient stress testing No further inpatient recommendations from a cardiac standpoint We will sign off. Please reconsult if needed. Nurse practitioner note has been reviewed by physician. Signing provider agrees with the documented findings, assessment, and plan of care documented by [employer] as a scribe. Objective - Vital Signs Vital signs: Vital Signs Temp 97.4 F L 11/10/24 08:56 Pulse 98 11/10/24 08:56 Resp 17 11/10/24 08:56 BP 124/86 11/10/24 08:56 Pulse Ox 93 L 11/10/24 08:56 FiO2 Intake & Output 11/09/24 11/10/24 11/10/24 18:59 06:59 18:59 Intake Total 118 Balance 118 Intake: Oral 118 - Labs CBC & Chem 7: 11/08/24 14:42 11/10/24 06:34 Labs: Microbiology - Last 24 Hours (Table) 11/08/24 14:42 Blood Culture Gram Stain - Preliminary Blood Blood Culture - Preliminary Molecular ID
--- NOTE | 2024-11-11 11:56 | P.PN ---
Subjective Progress Note Date: 11/11/24 Hospital Course: 64-year-old male with a PMH of bilateral chronic venous insufficiency with chr onic nonhealing ulcers and hypertension who presents to the emergency room with complaints of lower extremity swelling and pain. Complaining of chest pain. Chest x-ray in the emergency room was unremarkable with EKG showing sinus rhythm with right bundle branch block at 80 beats per minute. Laboratory evaluation was remarkable for troponin less than 0.012 with platelet count 142 (at baseline). Patient started on IV antibiotics. Cardiology also consulted. Echocardiogram showed normal LV systolic function, EF 55 to 60%, mild pulmonary hypertension, poorly visualized aortic valve, dilated aorta at 4 cm, mild aortic insufficiency. Cellulitis not improving. ID consulted. Subjective: Patient seen and examined at bedside. No acute events overnight. Denies any further chest pain. Continues to have left lower extremity pain Pertinent positives and negatives as discussed above, a complete review of systems was performed and all other systems are negative. Vitals Signs Reviewed. General: Nontoxic, no distress, appears at stated age Derm: Warm, dry, bilateral lower extremity venous stasis changes, erythema and edema worse on the left lower extremity, multiple ulcerations with no drainage Head: Atraumatic, normocephalic, symmetric Eyes: EOMI, no lid lag, anicteric sclera Mouth: No lip lesion, mucus membranes moist Cardiovascular: S1S2 reg, no murmur Lungs: CTA bilateral, no rhonchi, no rales, no accessory muscle use Abdominal: Soft, nontender to palpation, no guarding, no appreciable organomegaly Ext: No gross muscle atrophy, no edema, no contractures Neuro: CN II-XI grossly intact, no focal neuro deficits Psych: Alert, oriented, appropriate affect Data Reviewed Today: Pertinent Labs: No new labs Imaging: Arterial Doppler showed mild stenosis in the right toe digital artery, unable to assess left Assessment and Plan: Active: Left lower extremity cellulitis Chronic venous insufficiency bilateral, with nonhealing ulcers -Wound care following -Continue IV cefazolin -No signs of systemic infection -Pain control with oral Tylenol, IV morphine as needed, monitor for sedation -Reviewed recent venous Dopplers, negative for DVTs -Arterial Doppler showed mild stenosis in the right toe digital artery, unable to assess left -Discussed management with ID, will be seeing patient today, further recommendations to follow Chest pain, ACS ruled out -Continue telemetry monitoring -Aspirin 81 mg, atorvastatin 80 mg -Cardiology signed off, outpatient stress test Positive blood culture, likely contaminant -Growing Staph epidermidis -Repeat blood culture Chronic: Hypertension DVT ppx: Lovenox Code status: Full code Anticipated discharge place: Pending clinical course Anticipated discharge time: Pending clinical course Objective - Vital Signs Vital signs: Vital Signs Temp 97.5 F L 11/11/24 07:13 Pulse 82 11/11/24 07:13 Resp 18 11/11/24 07:13 BP 148/93 11/11/24 07:13 Pulse Ox 91 L 11/11/24 07:13 FiO2 Intake & Output 11/10/24 11/11/24 11/11/24 18:59 06:59 18:59 Intake Total 118 1000 Balance 118 1000 Weight 102.058 kg Intake: Oral 118 1000 Other: Voiding Method Toilet # Voids 3 1 - Labs CBC & Chem 7: 11/08/24 14:42 11/10/24 06:34 Labs: Microbiology - Last 24 Hours (Table) 11/08/24 14:42 Blood Culture Gram Stain - Preliminary Blood Blood Culture - Preliminary Staphylococcus epidermidis Molecular ID
[2024-11-11] MEDS ORDERED: VANCOMYCIN IV PER PHARMACY 1 EACH MISC MISCELLANE PRN (13:18)
[2024-11-11] MEDS: VANCOMYCIN 1,750 MG in SODIUM CHLORIDE 0.9% 500 ML 500 ML IVPB ONE (15:08)
[2024-11-11] MEDS: VANCOMYCIN 1,750 MG in SODIUM CHLORIDE 0.9% 500 ML 500 ML IVPB SCH (22:56)
[2024-11-12 04:55] LABS: African American GFR (CKD) >90 (>60 ml/min/1.73 sqM); Anion Gap 7 mmol/L; Blood Urea Nitrogen 22 mg/dL (9-20); Calcium 9.6 mg/dL (8.4-10.2); Carbon Dioxide 29 mmol/L (22-30); Chloride 100 mmol/L (98-107); Glucose 108 mg/dL (74-99); Non-African American GFR(CKD) >90 (>60 ml/min/1.73 sqM); Potassium 4.2 mmol/L (3.5-5.1); Sodium 136 mmol/L (137-145)
--- NOTE | 2024-11-12 07:02 | P.CONS ---
History of Present Illness - Reason for Consult Consult date: 11/11/24 Bilateral lower extremity cellulitis Requesting physician: Satish Pacheco - Chief Complaint Increasing swelling redness and pain to the legs x days - History of Present Illness Patient is a 64-year-old male with a past medical history significant for bilateral lower extremity chronic swelling venous stasis ulcer and hypertension presenting to the hospital for evaluation of increasing swelling redness and pain to bilateral extremity specially to the left leg patient apparently has been following with a wound care center for dressing changes and apparently mention the dressing has been kept there for longer and then take the dressing off noticed to having increasing swelling and redness especially to the left leg patient complaining of pain which is mostly sharp getting worse for the last 2 days before presentation to the hospital moderate intensity without radiation with associated swelling redness patient on presentation to the hospital was afebrile no fever have been recorded subsequently patient was not tachycardic hypotensive or hypoxic patient did have white count of 9.5 creatinine 0.67 positive blood culture with staph epi patient has been treated with the cefazolin did not have improvement infectious disease was consulted today for further management of antibiotic therapy she did have lower extremity Dopplers which did shows mild stenosis in the right toe digit treated artery Review of Systems Positive point and negatives has been mentioned in the HPI, complete review of systems was performed and all other systems are negative Past Medical History Past Medical History: No Reported History Additional Past Medical History / Comment(s): cellulitis, History of Any Multi-Drug Resistant Organisms: None Reported Past Surgical History: No Surgical Hx Reported Past Anesthesia/Blood Transfusion Reactions: Unable to Obtain Past Psychological History: No Psychological Hx Reported Smoking Status: Current every day smoker Past Alcohol Use History: None Reported Past Drug Use History: None Reported Medications and Allergies Home Medications Medication Instructions Recorded Confirmed Type Lisinopril-Hctz 20-25 mg 1 tab PO DAILY #60 tab 08/19/24 11/09/24 Rx [Zestoretic 20-25] Allergies Allergy/AdvReac Type Severity Reaction Status Date / Time No Known Allergies Allergy Verified 11/08/24 12:39 Physical Exam Vitals: Vital Signs Temp Pulse Resp BP Pulse Ox 11/11/24 07:13 97.5 F L 82 18 148/93 91 L 11/11/24 01:17 98.4 F 88 17 147/100 96 11/10/24 20:00 98.1 F 79 18 121/82 96 11/10/24 15:46 98.0 F 91 17 135/70 92 L 11/10/24 13:43 98 F 91 18 135/70 Intake and Output 11/10/24 11/11/24 11/11/24 22:59 06:59 14:59 Intake Total 500 500 Balance 500 500 Intake: Oral 500 500 Other: Voiding Method Toilet Toilet # Voids 2 1 Weight 102.058 kg GENERAL DESCRIPTION: Middle-aged male lying in bed, no distress. No tachypnea or accessory muscle of respiration use. HEENT: Shows Pallor , no scleral icterus. Oral mucous membrane is dry. No pharyngeal erythema or thrush NECK: Trachea central, no thyromegaly. LUNGS: Unlabored breathing. Clear to auscultation anteriorly. No wheeze or crackle. HEART: S1, S2, regular rate and rhythm. No loud murmur ABDOMEN: Soft, no tenderness , guarding or rigidity, no organomegaly EXTREMITIES: Patient did have bilateral lower extremity swelling with more diffuse redness especially to the left leg some superficial ulceration from skin breakdown but no purulent drainage. SKIN: No rash, no masses palpable. NEUROLOGICAL: The patient is awake, alert, oriented x3, mood and affect normal. Results CBC & Chem 7: 11/08/24 14:42 11/12/24 02:59 Labs: Microbiology - Last 24 Hours (Table) 11/08/24 14:42 Blood Culture Gram Stain - Preliminary Blood Blood Culture - Preliminary Staphylococcus epidermidis Molecular ID Assessment and Plan (1) Bilateral lower leg cellulitis Current Visit: Yes Status: Acute Code(s): L03.116 - CELLULITIS OF LEFT LOWER LIMB; L03.115 - CELLULITIS OF RIGHT LOWER LIMB SNOMED Code(s): 896387947 (2) Non-pressure chronic ulcer of other part of left lower leg limited to breakdown of skin Current Visit: Yes Status: Acute Code(s): L97.821 - NON-PRS CHR ULCER OTH PRT L LOW LEG LIMITED TO BRKDWN SKIN SNOMED Code(s): 24031053890318254 Plan: 1patient with bilateral lower extremity swelling this patient noted to have some superficial breakdown to the left lower extremity and increasing redness concerning for cellulitis did not respond to the cefazolin. 2marked the area of the redness. 3we will apply Puma wrap from just above the toe to below the knee. 4discontinue cefazolin. 5vancomycin pharmacy to dose target trough of 15 while watching kidney function and Vanco trough closely. We will follow on clinical condition and cultures to further adjust medication if needed Thank you for this consultation we will follow the patient along with you Dictation was produced using [employer] dictation software. please excuse any grammatical, word or spelling errors. Time with Patient: Greater than 30
--- NOTE | 2024-11-12 11:46 | P.PN ---
Subjective Progress Note Date: 11/12/24 Hospital Course: 64-year-old male with a PMH of bilateral chronic venous insufficiency with chr onic nonhealing ulcers and hypertension who presents to the emergency room with complaints of lower extremity swelling and pain. Complaining of chest pain. Chest x-ray in the emergency room was unremarkable with EKG showing sinus rhythm with right bundle branch block at 80 beats per minute. Laboratory evaluation was remarkable for troponin less than 0.012 with platelet count 142 (at baseline). Patient started on IV antibiotics. Cardiology also consulted. Echocardiogram showed normal LV systolic function, EF 55 to 60%, mild pulmonary hypertension, poorly visualized aortic valve, dilated aorta at 4 cm, mild aortic insufficiency. Cellulitis not improving. ID consulted. Patient on IV van comycin. Subjective: Patient seen and examined at bedside. No acute events overnight. Denies any further chest pain. Continues to have left lower extremity pain but slightly improved Pertinent positives and negatives as discussed above, a complete review of systems was performed and all other systems are negative. Vitals Signs Reviewed. General: Nontoxic, no distress, appears at stated age Derm: Warm, dry, bilateral lower extremity venous stasis changes, erythema and edema worse on the left lower extremity, multiple ulcerations with no drainage Head: Atraumatic, normocephalic, symmetric Eyes: EOMI, no lid lag, anicteric sclera Mouth: No lip lesion, mucus membranes moist Cardiovascular: S1S2 reg, no murmur Lungs: CTA bilateral, no rhonchi, no rales, no accessory muscle use Abdominal: Soft, nontender to palpation, no guarding, no appreciable organomegaly Ext: No gross muscle atrophy, no edema, no contractures Neuro: CN II-XI grossly intact, no focal neuro deficits Psych: Alert, oriented, appropriate affect Data Reviewed Today: Pertinent Labs: Creatinine 0.76 Imaging: No new imaging Assessment and Plan: Active: Left lower extremity cellulitis Chronic venous insufficiency bilateral, with nonhealing ulcers -Wound care following -Continue IV vancomycin, monitor for renal toxicity -No signs of systemic infection -Pain control with oral Tylenol, IV morphine as needed, monitor for sedation -Reviewed recent venous Dopplers, negative for DVTs -Arterial Doppler showed mild stenosis in the right toe digital artery, unable to assess left -ID following Chest pain, ACS ruled out -Continue telemetry monitoring -Aspirin 81 mg, atorvastatin 80 mg -Cardiology signed off, outpatient stress test Positive blood culture, likely contaminant -Growing Staph epidermidis -Repeat blood culture negative growth to date Chronic: Hypertension DVT ppx: Lovenox Code status: Full code Anticipated discharge place: Pending clinical course Anticipated discharge time: Pending clinical course Objective - Vital Signs Vital signs: Vital Signs Temp 97.1 F L 11/12/24 07:32 Pulse 70 11/12/24 07:32 Resp 16 11/12/24 07:32 BP 120/68 11/12/24 07:32 Pulse Ox 96 11/12/24 07:32 FiO2 Intake & Output 11/11/24 11/12/24 11/12/24 18:59 06:59 18:59 Intake Total 1100 Balance 1100 Intake: Intake, IV Titration 500 Amount Vancomycin 1,750 mg In 500 Sodium Chloride 0.9% 500 ml 500 ml @ 167 mls/hr IVPB ONCE ONE Rx#: [id number] Oral 600 Other: Voiding Method Toilet # Voids 3 3 - Labs CBC & Chem 7: 11/08/24 14:42 11/12/24 02:59 Labs: Abnormal Lab Results - Last 24 Hours (Table) 11/12/24 Range/Units 02:59 Sodium 136 L (137-145) mmol/L BUN 22 H (9-20) mg/dL Glucose 108 H (74-99) mg/dL Microbiology - Last 24 Hours (Table) 11/08/24 14:42 Blood Culture Gram Stain - Final Blood Blood Culture - Final Staphylococcus epidermidis Molecular ID 11/10/24 08:48 Blood Culture - Preliminary Blood
[2024-11-12] MEDS ORDERED: NYSTAT-TRIAMCIN 100,000-0.1 UNIT/GM-% CREAM 30 GM TUBE TOPICAL SCH (14:00)
--- NOTE | 2024-11-12 15:11 | P.PN ---
Subjective Progress Note Date: 11/12/24 Principal diagnosis: Reason for follow-up is left leg cellulitis Patient is a 64-year-old male with a past medical history significant for bilateral lower extremity chronic swelling venous stasis ulcer and hypertension presenting to the hospital for evaluation of increasing swelling redness and pain to bilateral extremity specially to the left leg did not responded to cefazolin prompting this consultation also have a positive blood culture with staph epi On today's evaluation that is 11/12/2024,the patient denies any fever or any chills, patient is breathing comfortably on room air, the patient denies chest pain shortness of breath and no significant cough, patient denies abdominal pain, no nausea vomiting or diarrhea. Patient still complaining of pain to lo wer extremity and nursing staff mention patient not allowing them to apply any dressings. Patient did have a creatinine 0.76 blood culture repeat negative Objective - Vital Signs Vital signs: Vital Signs Temp 97.1 F L 11/12/24 07:32 Pulse 70 11/12/24 07:32 Resp 16 11/12/24 07:32 BP 120/68 11/12/24 07:32 Pulse Ox 96 11/12/24 07:32 FiO2 Intake & Output 11/11/24 11/12/24 11/12/24 18:59 06:59 18:59 Intake Total 1100 Balance 1100 Intake: Intake, IV Titration 500 Amount Vancomycin 1,750 mg In 500 Sodium Chloride 0.9% 500 ml 500 ml @ 167 mls/hr IVPB ONCE ONE Rx#: [id number] Oral 600 Other: Voiding Method Toilet # Voids 3 3 - Exam GENERAL DESCRIPTION: Middle-age male lying in bed in no distress RESPIRATORY SYSTEM: Unlabored breathing , decreased breath sounds at bases HEART: S1 S2 regular rate and rhythm , ABDOMEN: Soft , no tenderness EXTREMITIES: Left leg with erythema slightly decreased - Labs CBC & Chem 7: 11/08/24 14:42 11/12/24 02:59 Labs: Abnormal Lab Results - Last 24 Hours (Table) 11/12/24 Range/Units 02:59 Sodium 136 L (137-145) mmol/L BUN 22 H (9-20) mg/dL Glucose 108 H (74-99) mg/dL Microbiology - Last 24 Hours (Table) 11/08/24 14:42 Blood Culture Gram Stain - Final Blood Blood Culture - Final Staphylococcus epidermidis Molecular ID 11/10/24 08:48 Blood Culture - Preliminary Blood Assessment and Plan (1) Bilateral lower leg cellulitis Current Visit: Yes Status: Acute Code(s): L03.116 - CELLULITIS OF LEFT LOWER LIMB; L03.115 - CELLULITIS OF RIGHT LOWER LIMB SNOMED Code(s): 439419234 (2) Non-pressure chronic ulcer of other part of left lower leg limited to breakdown of skin Current Visit: Yes Status: Acute Code(s): L97.821 - NON-PRS CHR ULCER OTH PRT L LOW LEG LIMITED TO BRKDWN SKIN SNOMED Code(s): 77108697563027102 Plan: 1patient with bilateral lower extremity swelling this patient noted to have eileen e superficial breakdown to the left lower extremity and increasing redness concerning for cellulitis did not respond to the cefazolin. 2patient here for general having any compression dressing by the nursing staff we will apply Mycolog cream. 3we will continuevancomycin pharmacy to dose target trough of 15 while watching kidney function and Vanco trough closely. Dictation was produced using [employer] dictation software. please excuse any grammatical, word or spelling errors. Time with Patient: Less than 30
[2024-11-12] MEDS: TRIAMCINOLONE 0.1% CREAM 80 GM TUBE TOPICAL SCH (16:00)
[2024-11-12] MEDS: NYSTATIN 100,000UNIT/GM CREAM 30 GM TUBE TOPICAL SCH (16:00)
[2024-11-13 03:32] LABS: African American GFR (CKD) >90 (>60 ml/min/1.73 sqM); Anion Gap 6 mmol/L; Blood Urea Nitrogen 18 mg/dL (9-20); Calcium 9.5 mg/dL (8.4-10.2); Carbon Dioxide 31 mmol/L (22-30); Chloride 98 mmol/L (98-107); Glucose 126 mg/dL (74-99); Non-African American GFR(CKD) >90 (>60 ml/min/1.73 sqM); Potassium 4.3 mmol/L (3.5-5.1); Sodium 135 mmol/L (137-145)
[2024-11-13 10:38] LABS: African American GFR (CKD) >90 (>60 ml/min/1.73 sqM); Non-African American GFR(CKD) >90 (>60 ml/min/1.73 sqM)
[2024-11-13] MEDS: VANCOMYCIN TROUGH DUE 1 EACH MISC MISCELLANE ONE (11:53)
--- NOTE | 2024-11-13 13:10 | P.PN ---
Subjective Progress Note Date: 11/13/24 Hospital Course: 64-year-old male with a PMH of bilateral chronic venous insufficiency with chr onic nonhealing ulcers and hypertension who presents to the emergency room with complaints of lower extremity swelling and pain. Complaining of chest pain. Chest x-ray in the emergency room was unremarkable with EKG showing sinus rhythm with right bundle branch block at 80 beats per minute. Laboratory evaluation was remarkable for troponin less than 0.012 with platelet count 142 (at baseline). Patient started on IV antibiotics. Cardiology also consulted. Echocardiogram showed normal LV systolic function, EF 55 to 60%, mild pulmonary hypertension, poorly visualized aortic valve, dilated aorta at 4 cm, mild aortic insufficiency. Cellulitis not improving. ID consulted. Patient on IV van comycin. Subjective: Patient seen and examined at bedside. No acute events overnight. Denies any further chest pain. Continues to have left lower extremity pain but slightly improved. Pertinent positives and negatives as discussed above, a complete review of systems was performed and all other systems are negative. Vitals Signs Reviewed. General: Nontoxic, no distress, appears at stated age Derm: Warm, dry, bilateral lower extremity venous stasis changes, erythema and edema worse on the left lower extremity, multiple ulcerations with no drainage Head: Atraumatic, normocephalic, symmetric Eyes: EOMI, no lid lag, anicteric sclera Mouth: No lip lesion, mucus membranes moist Cardiovascular: S1S2 reg, no murmur Lungs: CTA bilateral, no rhonchi, no rales, no accessory muscle use Abdominal: Soft, nontender to palpation, no guarding, no appreciable organomegaly Ext: No gross muscle atrophy, no edema, no contractures Neuro: CN II-XI grossly intact, no focal neuro deficits Psych: Alert, oriented, appropriate affect Data Reviewed Today: Pertinent Labs: Sodium 135, bicarb 31, creatinine 0.63, Vanco trough 15.9 Imaging: No new imaging Assessment and Plan: Active: Left lower extremity cellulitis Chronic venous insufficiency bilateral, with nonhealing ulcers -Wound care following -Continue IV vancomycin, monitor for renal toxicity -No signs of systemic infection -Pain control with oral Tylenol, IV morphine as needed, monitor for sedation -Reviewed recent venous Dopplers, negative for DVTs -Arterial Doppler showed mild stenosis in the right toe digital artery, unable to assess left -Discussed with ID, likely discharge tomorrow on oral antibiotics, patient wants to be discharged in 2 days, however most of his current complaints may be attributed to chronic venous insufficiency, and patient could be discharged tomorrow. Chest pain, ACS ruled out -Continue telemetry monitoring -Aspirin 81 mg, atorvastatin 80 mg -Cardiology signed off, outpatient stress test Positive blood culture, likely contaminant -Growing Staph epidermidis -Repeat blood culture negative growth to date Chronic: Hypertension DVT ppx: Lovenox Code status: Full code Anticipated discharge place: Pending clinical course Anticipated discharge time: Pending clinical course Objective - Vital Signs Vital signs: Vital Signs Temp 97.8 F 11/13/24 07:00 Pulse 91 11/13/24 07:00 Resp 16 11/13/24 07:00 BP 118/65 11/13/24 07:00 Pulse Ox 96 11/13/24 07:00 FiO2 Intake & Output 11/12/24 11/13/24 11/13/24 18:59 06:59 18:59 Intake Total 1600 Output Total 550 Balance 1050 Intake: Intake, IV Titration 500 Amount Vancomycin 1,750 mg In 500 Sodium Chloride 0.9% 500 ml 500 ml @ 167 mls/hr IVPB Q12H [facility] Rx#: [id number] Oral 1100 Output: Urine 550 Other: Voiding Method Toilet Urinal # Voids 2 - Labs CBC & Chem 7: 11/08/24 14:42 11/13/24 09:41 Labs: Abnormal Lab Results - Last 24 Hours (Table) 11/13/24 11/13/24 Range/Units 02:50 09:41 Sodium 135 L (137-145) mmol/L Carbon Dioxide 31 H (22-30) mmol/L Creatinine 0.63 L 0.56 L (0.66-1.25) mg/dL Glucose 126 H (74-99) mg/dL Microbiology - Last 24 Hours (Table) 11/10/24 08:48 Blood Culture - Preliminary Blood 11/08/24 14:42 Blood Culture Gram Stain - Final Blood Blood Culture - Final Staphylococcus epidermidis Molecular ID
--- NOTE | 2024-11-13 15:10 | P.PN ---
Subjective Progress Note Date: 11/13/24 Principal diagnosis: Reason for follow-up is left leg cellulitis Patient is a 64-year-old male with a past medical history significant for bilateral lower extremity chronic swelling venous stasis ulcer and hypertension presenting to the hospital for evaluation of increasing swelling redness and pain to bilateral extremity specially to the left leg did not responded to cefazolin prompting this consultation also have a positive blood culture with staph epi On today's evaluation that is 11/13/2024,the patient remains to be afebrile, patient is on room air not requiring supplemental oxygen and denies any shortness of breath no chest pain or cough.Patient denies having any nausea or vomiting, no abdominal pain and no diarrhea pain to the left lower extremity slightly decreased intensity. The patient did have a creatinine 0.56, vancomycin trough is 15.9 Objective - Vital Signs Vital signs: Vital Signs Temp 97.8 F 11/13/24 07:00 Pulse 91 11/13/24 07:00 Resp 16 11/13/24 07:00 BP 118/65 11/13/24 07:00 Pulse Ox 96 11/13/24 07:00 FiO2 Intake & Output 11/12/24 11/13/24 11/13/24 18:59 06:59 18:59 Intake Total 1600 500 Output Total 550 Balance 1050 500 Intake: Intake, IV Titration 500 500 Amount Vancomycin 1,500 mg In 500 Sodium Chloride 0.9% 500 ml 500 ml @ 167 mls/hr IVPB Q12H [facility] Rx#: [id number] Vancomycin 1,750 mg In 500 Sodium Chloride 0.9% 500 ml 500 ml @ 167 mls/hr IVPB Q12H [facility] Rx#: [id number] Oral 1100 Output: Urine 550 Other: Voiding Method Toilet Urinal # Voids 2 3 - Exam GENERAL DESCRIPTION: Middle-age male lying in bed in no distress RESPIRATORY SYSTEM: Unlabored breathing , decreased breath sounds at bases HEART: S1 S2 regular rate and rhythm , ABDOMEN: Soft , no tenderness EXTREMITIES: Left leg with erythema has decreased in intensity - Labs CBC & Chem 7: 11/08/24 14:42 11/13/24 09:41 Labs: Abnormal Lab Results - Last 24 Hours (Table) 11/13/24 11/13/24 Range/Units 02:50 09:41 Sodium 135 L (137-145) mmol/L Carbon Dioxide 31 H (22-30) mmol/L Creatinine 0.63 L 0.56 L (0.66-1.25) mg/dL Glucose 126 H (74-99) mg/dL Microbiology - Last 24 Hours (Table) 11/10/24 08:48 Blood Culture - Preliminary Blood Assessment and Plan (1) Bilateral lower leg cellulitis Current Visit: Yes Status: Acute Code(s): L03.116 - CELLULITIS OF LEFT LOWER LIMB; L03.115 - CELLULITIS OF RIGHT LOWER LIMB SNOMED Code(s): 065127901 (2) Non-pressure chronic ulcer of other part of left lower leg limited to breakdown of skin Current Visit: Yes Status: Acute Code(s): L97.821 - NON-PRS CHR ULCER OTH PRT L LOW LEG LIMITED TO BRKDWN SKIN SNOMED Code(s): 81839675046594999 Plan: 1patient with bilateral lower extremity swelling this patient noted to have so me superficial breakdown to the left lower extremity and increasing redness concerning for cellulitis did not respond to the cefazolin. 2patient has been refusing compression dressing but advised it would benefit him received have agreed to wait 3we will continuevancomycin pharmacy to dose target trough of 15 while along with Mycolog cream for a 24-hour before transitioning to oral discussed with the admitting physician patient is reluctant to go home today anyway Dictation was produced using [employer] dictation software. please excuse any grammatical, word or spelling errors. Time with Patient: Less than 30
[2024-11-13] MEDS: VANCOMYCIN 1,500 MG in SODIUM CHLORIDE 0.9% 500 ML 500 ML IVPB SCH (23:04)
[2024-11-14 03:34] LABS: African American GFR (CKD) >90 (>60 ml/min/1.73 sqM); Non-African American GFR(CKD) >90 (>60 ml/min/1.73 sqM)
[2024-11-14] MEDS: MORPHINE SULFATE 2 MG/ML SYRINGE IVP PRN (10:30)
--- NOTE | 2024-11-14 12:51 | P.PN ---
Subjective Progress Note Date: 11/14/24 Hospital course: Patient is a very pleasant 64-year-old male with a past medical history of bilateral chronic venous insufficiency with chronic nonhealing ulcers and hypertension who presents to the emergency room with complaints of lower extremity swelling and pain. Complaining of chest pain. Chest x-ray in the emergency room was unremarkable with EKG showing sinus rhythm with right bundle branch block at 80 beats per minute. Laboratory evaluation was remarkable for troponin less than 0.012 with platelet count 142 (at baseline). Patient started on IV antibiotics. Cardiology also consulted. Echocardiogram showed normal LV systolic function, EF 55 to 60%, mild pulmonary hypertension, poorly visualized aortic valve, dilated aorta at 4 cm, mild aortic insufficiency. Cellulitis not improving. ID consulted. Patient on IV vancomycin. Physical exam: Patient seen and fully evaluated at bedside this morning. Patient reports mild weakness and difficulty with ambulation. Patient reports he purchased a cane and is attempting to use for ambulation at this time. Discussed with patient we will consult physical and Occupational Therapy to evaluate and provide further recommendations. Also discussed in detail with infectious disease physician and plan is for discharge home tomorrow. Vital signs reviewed and stable. General: Nontoxic, no distress and appears stated age. Derm: Skin warm and dry, normal coloration for ethnicity. Bilateral lower extremity venous stasis changes with erythema and edema course on left lower extremity with multiple ulcers, no active drainage Head: Atraumatic, normocephalic and symmetric. Eyes: EOM's intact, no lid lag, and anicteric sclera Mouth: no lip lesions, mucus membranes moist Cardiovascular: regular rate and rhythm with normal S1S2, no murmur and cap refill < 2 seconds. Lungs: Respirations even, regular, and unlabored on room air. Lungs CTA bilaterally, no rhonchi, no rales, no wheezing, and no accessory muscle usage. Abdominal: soft, nontender to palpation, no guarding, no appreciable organomegaly Ext: ROM intact. No gross muscle atrophy, no edema, no contractures Neuro: Speech clear, face symmetrical and CN II-XII grossly intact with no noted focal neuro deficits Psych: Alert and oriented to person, place, time, and situation. Appropriate and pleasant affect. Assessment and Plan of Care: Left lower extremity cellulitis Chronic venous insufficiency bilateral, with nonhealing ulcers -Wound care following -Continue IV vancomycin 1500 mg every 12 hours, monitor for renal toxicity -Infectious disease following, discussed with Dr. Hastings at bedside and plan for discharge home tomorrow on oral antibiotics. -Pain control with oral Tylenol, IV morphine as needed, monitor for sedation -Reviewed recent venous Dopplers, negative for DVTs -Arterial Doppler showed mild stenosis in the right toe digital artery, unable to assess left Chest pain, ACS ruled out -Continue telemetry monitoring -Aspirin 81 mg, atorvastatin 80 mg -Cardiology signed off, recommending outpatient stress test Positive blood culture, likely contaminant -Positive for Staph epidermidis and repeat culture showing no growth to date. Hypertension -Monitor vital signs and continue daily medication regimen with lisinoprilhydrochlorothiazide 20-25 mg tablets daily. Data reviewed: Morning labs reviewed. Creatinine 0.64 with GFR greater than 90. Vancomycin trough therapeutic at 15.9. Vital signs reviewed. Blood pressure 130/83, heart rate 87, respiratory rate 16, temp 98.9 F, and SpO2 of 95% on room air. CODE STATUS: Full code DVT prophylaxis: Lovenox Anticipated discharge date: Plan for discharge tomorrow morning. Anticipated discharge place: Plan for discharge home possibly with home care pending PT/OT recommendations. Patient was seen independently by Nurse Pracitioner. This document was prepared using [employer] dictation software. Please allow for errors in deep tissue massage therapist, while rare they do occur. Dennys Cai NP rendered care for this patient independently, reviewed the find ings and plan as documented in the note above and agree with plan. I did not physically speak with or examine the patient on this date. Objective - Vital Signs Vital signs: Vital Signs Temp 98.9 F 11/14/24 02:00 Pulse 87 11/14/24 02:00 Resp 16 11/14/24 02:00 BP 130/83 11/14/24 02:00 Pulse Ox 95 11/14/24 02:00 FiO2 Intake & Output 11/13/24 11/14/24 11/14/24 18:59 06:59 18:59 Intake Total 500 1350 Output Total 250 Balance 500 1100 Intake: Intake, IV Titration 500 500 Amount Vancomycin 1,500 mg In 500 500 Sodium Chloride 0.9% 500 ml 500 ml @ 167 mls/hr IVPB Q12H [facility] Rx#: [id number] Oral 850 Output: Urine 250 Other: Voiding Method Urinal Toilet Toilet Urinal Urinal # Voids 3 3 - Labs CBC & Chem 7: 11/08/24 14:42 11/14/24 03:10 Labs: Abnormal Lab Results - Last 24 Hours (Table) 11/13/24 11/14/24 Range/Units 09:41 03:10 Creatinine 0.56 L 0.64 L (0.66-1.25) mg/dL Microbiology - Last 24 Hours (Table) 11/10/24 08:48 Blood Culture - Preliminary Blood
--- NOTE | 2024-11-14 15:32 | P.PN ---
Subjective Progress Note Date: 11/14/24 Principal diagnosis: Reason for follow-up is left leg cellulitis Patient is a 64-year-old male with a past medical history significant for bilateral lower extremity chronic swelling venous stasis ulcer and hypertension presenting to the hospital for evaluation of increasing swelling redness and pain to bilateral extremity specially to the left leg did not responded to cefazolin prompting this consultation also have a positive blood culture with staph epi On today's evaluation that is 11/14/2024, the patient continues to be afebrile, the patient is on room air and breathing comfortably, the Pt denies having any chest pain or cough, the patient denies having any abdominal pain no vomiting or any diarrhea pain to the left lower extremity slightly decreased. Patient did have a creatinine 0.64 Vanco trough 15.9 Objective - Vital Signs Vital signs: Vital Signs Temp 98.9 F 11/14/24 02:00 Pulse 87 11/14/24 02:00 Resp 16 11/14/24 02:00 BP 130/83 11/14/24 02:00 Pulse Ox 95 11/14/24 02:00 FiO2 Intake & Output 11/13/24 11/14/24 11/14/24 18:59 06:59 18:59 Intake Total 500 1350 Output Total 250 Balance 500 1100 Intake: Intake, IV Titration 500 500 Amount Vancomycin 1,500 mg In 500 500 Sodium Chloride 0.9% 500 ml 500 ml @ 167 mls/hr IVPB Q12H [facility] Rx#: [id number] Oral 850 Output: Urine 250 Other: Voiding Method Urinal Toilet Toilet Urinal Urinal # Voids 3 3 - Exam GENERAL DESCRIPTION: Middle-age male lying in bed in no distress RESPIRATORY SYSTEM: Unlabored breathing , decreased breath sounds at bases HEART: S1 S2 regular rate and rhythm , ABDOMEN: Soft , no tenderness EXTREMITIES: Left leg with erythema has decreased in intensity - Labs CBC & Chem 7: 11/08/24 14:42 11/14/24 03:10 Labs: Abnormal Lab Results - Last 24 Hours (Table) 11/14/24 Range/Units 03:10 Creatinine 0.64 L (0.66-1.25) mg/dL Microbiology - Last 24 Hours (Table) 11/10/24 08:48 Blood Culture - Preliminary Blood Assessment and Plan (1) Bilateral lower leg cellulitis Current Visit: Yes Status: Acute Code(s): L03.116 - CELLULITIS OF LEFT LOWER LIMB; L03.115 - CELLULITIS OF RIGHT LOWER LIMB SNOMED Code(s): 402902312 (2) Non-pressure chronic ulcer of other part of left lower leg limited to breakdown of skin Current Visit: Yes Status: Acute Code(s): L97.821 - NON-PRS CHR ULCER OTH PRT L LOW LEG LIMITED TO BRKDWN SKIN SNOMED Code(s): 56955271110159355 Plan: 1patient with bilateral lower extremity swelling this patient noted to have some superficial breakdown to the left lower extremity and increasing redness concerning for cellulitis did not respond to the cefazolin. 2patient finally allowed the nursing staff to apply Puma wrap which will be continued for the 24-hour 3patient is reluctant to go home today, will continuevancomycin pharmacy to dose target trough of 15 while along with Mycolog cream for a 24-hour and reeva luate the leg tomorrow Dictation was produced using [employer] dictation software. please excuse any gr ammatical, word or spelling errors. Time with Patient: Less than 30
[2024-11-15 08:35] VITALS: RESP 16
[2024-11-15 09:51] LABS: HCT 43.2 % (39.6-50.0); HGB 14.1 g/dL (13.0-17.0); MCH 29.4 pg (27.0-32.0); MCHC 32.6 g/dL (32.0-37.0); Mean Platelet Volume 11.4 FL (9.5-12.2); NRBC Per 100 WBC 0 X 10*3/uL (0.00-0.01); Platelet Count 151 X 10*3/uL (140-440); RDW 12.5 % (11.5-14.5); WBC 7.85 X 10*3/uL (4.50-10.00)
[2024-11-15 10:07] LABS: ALT 19 U/L (10-49); AST 31 U/L (14-35); Albumin 3.6 g/dL (3.8-4.9); Alkaline Phosphatase 81 U/L (41-126); Blood Urea Nitrogen 17.4 mg/dL (9.0-27.0); Calcium 9.5 mg/dL (8.7-10.3); Carbon Dioxide 30.4 mmol/L (21.6-31.8); Chloride 103 mmol/L (96-109); Globulin 2.4 g/dL (1.6-3.3); Glucose 99 mg/dL (70-110); Magnesium 1.5 mg/dL (1.5-2.4); Potassium 3.8 mmol/L (3.5-5.5); Sodium 142 mmol/L (135-145); Total Bilirubin 0.5 mg/dL (0.3-1.2)
[2024-11-15] MEDS: VANCOMYCIN TROUGH DUE 1 EACH MISC MISCELLANE ONE (13:14)
[2024-11-15 15:14] VITALS: BP 121/78; PULSE 102; TEMP 98.5
--- NOTE | 2024-11-15 17:49 | P.DS ---
Providers Date of admission: 11/10/24 18:25 Expected date of discharge: 11/15/24 Attending physician: Greer Dee MD Consults: 11/11/24 10:54 Consult Physician Routine Consulting Provider: Eduar Hastings Consult Reason/Comments: non-healing ulcers, left leg cellulitis Do you want consulting provider notified?: Yes Primary care physician: María Sanchez MD Hospital Course: Discharge Diagnosis: Left lower extremity cellulitis Chronic venous insufficiency bilateral, with chronic nonhealing ulcers Chest pain, ACS ruled out Positive blood culture, likely contaminant. Positive for Staph epidermidis and repeat culture showing no growth to date. Hypertension. Monitor vital signs and continue daily medication regimen with lisinoprilhydrochlorothiazide 20-25 mg tablets daily. Hospital course: Patient is a very pleasant 64-year-old male with a past medical history of bilateral chronic venous insufficiency with chronic nonhealing ulcers and hypertension who presents to the emergency room with complaints of lower extremity swelling and pain. Complaining of chest pain. Chest x-ray in the emergency room was unremarkable with EKG showing sinus rhythm with right bundle branch block at 80 beats per minute. Laboratory evaluation was remarkable for troponin less than 0.012 with platelet count 142 (at baseline). Patient started on IV antibiotics. Cardiology also consulted. Echocardiogram showed normal LV systolic function, EF 55 to 60%, mild pulmonary hypertension, poorly visualized aortic valve, dilated aorta at 4 cm, mild aortic insufficiency. Arterial Doppler showed mild stenosis in the right toe digital artery, unable to assess left. Infectious disease following. Patient has been maintained on IV antibiotics with vancomycin. Patient has shown improvement. He was cleared from cardiac standpoint ruling out acute coronary syndrome recommending outpatient follow-up in their office. Infectious disease clearing patient from their standpoint recommending discharge home on doxycycline 100 mg twice daily for an additional 10 days. Medically patient optimized for discharge. He is being discharged home with [facility]. Patient to follow-up outpatient with PCP in 1 to 2 days, infectious disease/wound care in 1 week, and single end sewer in 1 week. Physical exam: Vital signs reviewed and stable. General: Nontoxic, no distress and appears stated age. Derm: Skin warm and dry, normal coloration for ethnicity. Bilateral lower extremity venous stasis changes with erythema and edema worse on left lower extremity with multiple ulcers, no active drainage Head: Atraumatic, normocephalic and symmetric. Eyes: EOM's intact, no lid lag, and anicteric sclera Mouth: no lip lesions, mucus membranes moist Cardiovascular: regular rate and rhythm with normal S1S2, no murmur and cap refill < 2 seconds. Lungs: Respirations even, regular, and unlabored on room air. Lungs CTA bilaterally, no rhonchi, no rales, no wheezing, and no accessory muscle usage. Abdominal: soft, nontender to palpation, no guarding, no appreciable organomegaly Ext: ROM intact. No gross muscle atrophy, no edema, no contractures Neuro: Speech clear, face symmetrical and CN II-XII grossly intact with no noted focal neuro deficits Psych: Alert and oriented to person, place, time, and situation. Appropriate and pleasant affect. A total of 35 minutes of time were spent preparing this complex discharge summary. Pt was discharged on 11/15/24 at 5:33 PM. Patient was seen independently by Nurse Practitioner. This document was prepared using [employer] dictation software. Please allow for errors in hawk missile system crewmember while rare they do occur. Dennys Cai NP rendered care for this patient independently, reviewed the findings and plan as documented in the note above. I did not physically speak with or examine the patient on this date. Patient Condition at Discharge: Stable Plan - Discharge Summary New Discharge Prescriptions: New Triamcinolone 0.1% Cream [Kenalog 0.1% Cream] 1 applic TOPICAL BID 30 Days #1 dispenser Nystatin 100,000Unit/gm Cream [Mycostatin Cream] 1 applic TOPICAL BID 30 Days #1 dispenser Doxycycline [Vibramycin] 100 mg PO BID 10 Days #20 capsule Continue Lisinopril-Hctz 20-25 mg [Zestoretic 20-25] 1 tab PO DAILY #60 tab Discharge Medication List Lisinopril-Hctz 20-25 mg [Zestoretic 20-25] 1 tab PO DAILY #60 tab 08/19/24 [Rx] Doxycycline [Vibramycin] 100 mg PO BID 10 Days #20 capsule 11/15/24 [Rx] Nystatin 100,000Unit/gm Cream [Mycostatin Cream] 1 applic TOPICAL BID 30 Days #1 dispenser 11/15/24 [Rx] Triamcinolone 0.1% Cream [Kenalog 0.1% Cream] 1 applic TOPICAL BID 30 Days #1 dispenser 11/15/24 [Rx] Follow up Appointment(s)/Referral(s): Diana Echavarria MD [STAFF PHYSICIAN] - 1 Week [facility] [NON-STAFF] - 1 Week María Sanchez MD [Primary Care Provider] - 1-2 days [facility], [NON-STAFF] - 1 Week Eduar Hastings MD [STAFF PHYSICIAN] - 1 Week Patient Instructions/Handouts: Cellulitis (GEN), Stasis Dermatitis (DC) Discharge Disposition: HOME WITH HOME HEALTH SERVICES
--- NOTE | 2024-11-15 21:46 | P.PN ---
Subjective Progress Note Date: 11/15/24 Principal diagnosis: Reason for follow-up is left leg cellulitis Patient is a 64-year-old male with a past medical history significant for bilateral lower extremity chronic swelling venous stasis ulcer and hypertension presenting to the hospital for evaluation of increasing swelling redness and pain to bilateral extremity specially to the left leg did not responded to cefazolin prompting this consultation also have a positive blood culture with staph epi On today's evaluation that is 11/15/2024, patient did not have any fever and denies any chills, patient is breathing comfortably on room air, patient with no chest pain or cough patient did not have any abdominal pain nausea vomiting or any loose stools overall patient is swelling lower extremity has decreased in intensity. Patient white count 7.85 creatinine 0.6 Vanco trough is 12.4 blood culture repeat has been negative Objective - Vital Signs Vital signs: Vital Signs Temp 97.3 F L 11/15/24 07:53 Pulse 87 11/15/24 08:00 Resp 16 11/15/24 08:00 BP 143/98 11/15/24 07:53 Pulse Ox 94 L 11/15/24 07:53 FiO2 Intake & Output 11/14/24 11/15/24 11/15/24 18:59 06:59 18:59 Intake Total 500 Balance 500 Intake: Intake, IV Titration 500 Amount Vancomycin 1,500 mg In 500 Sodium Chloride 0.9% 500 ml 500 ml @ 167 mls/hr IVPB Q12H [facility] Rx#: [id number] Other: Voiding Method Toilet Toilet Toilet Urinal # Voids 2 2 - Exam GENERAL DESCRIPTION: Middle-age male lying in bed in no distress RESPIRATORY SYSTEM: Unlabored breathing , decreased breath sounds at bases HEART: S1 S2 regular rate and rhythm , ABDOMEN: Soft , no tenderness EXTREMITIES: Left leg with erythema has decreased in intensity and no drainage - Labs CBC & Chem 7: 11/15/24 05:33 11/15/24 05:33 Labs: Abnormal Lab Results - Last 24 Hours (Table) 11/15/24 Range/Units 05:33 BUN/Creatinine Ratio 29.00 H (12.00-20.00) Ratio Total Protein 6.0 L (6.2-8.2) g/dL Albumin 3.6 L (3.8-4.9) g/dL Albumin/Globulin Ratio 1.50 L (1.60-3.17) Ratio Assessment and Plan (1) Bilateral lower leg cellulitis Status: Acute Code(s): L03.116 - CELLULITIS OF LEFT LOWER LIMB; L03.115 - CELLULITIS OF RIGHT LOWER LIMB SNOMED Code(s): 343313720 (2) Non-pressure chronic ulcer of other part of left lower leg limited to breakdown of skin Status: Acute Code(s): L97.821 - NON-PRS CHR ULCER OTH PRT L LOW LEG LIMITED TO BRKDWN SKIN SNOMED Code(s): 40797487734677071 Plan: 1patient with bilateral lower extremity swelling this patient noted to have some superficial breakdown to the left lower extremity and increasing redness concerning for cellulitis did not respond to the cefazolin. 2patient finally allowed the nursing staff to apply Puma wrap which will be continued for the 24-hour 3patient is reluctant to go home today however explained to him he has shown overall improvement to lower extremity cellulitis and can be easily managed at home with compression Mycolog cream and oral doxycycline x 10 days discussed with [facility] for admitting team Dictation was produced using [employer] dictation software. please excuse any grammatical, word or spelling errors. Time with Patient: Less than 30
== END 2024-11-15 19:00 | disposition home health service (06) | DRG 197 ==
LOC: EC 12:15 → 6NMEDSUR 22:58 → 1SOBS 11-10 07:13 → OBSVTOIN 11-10 18:25 → 4SSUR 11-14 17:50
PROVIDERS: ADMIT Internal Medicine; ATTEND Internal Medicine
DX: I83.029 Varicose veins of left lower extremity with ulcer of unspecified site (principal); L03.115 Cellulitis of right lower limb; L03.116 Cellulitis of left lower limb; L97.821 Non-pressure chronic ulcer of other part of left lower leg limited to breakdown of skin; I87.8 Other specified disorders of veins; I87.2 Venous insufficiency (chronic) (peripheral); G89.29 Other chronic pain; I83.019 Varicose veins of right lower extremity with ulcer of unspecified site; I77.819 Aortic ectasia, unspecified site; M54.9 Dorsalgia, unspecified; I45.10 Unspecified right bundle-branch block; I10 Essential (primary) hypertension; F17.200 Nicotine dependence, unspecified, uncomplicated; G62.9 Polyneuropathy, unspecified; Z85.6 Personal history of leukemia; Z92.21 Personal history of antineoplastic chemotherapy; Z92.3 Personal history of irradiation; Z91.199 Patient's noncompliance with other medical treatment and regimen due to unspecified reason; Z79.899 Other long term (current) drug therapy; R07.2 Precordial pain
CPT/HCPCS: 36415; 71046; 80048; 80053; 80202; 82565; 83605; 83735; 84484; 85025; 85027; 86140; 87040; 87077; 87186; 93005; 93306; 93922; 96361; 96365; 96366; 96367; 96375; 96376; 99285